=== PATIENT | male | born 1960 | race Caucasian/White ===

== ENCOUNTER 2017-08-28 12:09 | Emergency (ER) | payer OTHER ==
[~2017-08-28] VITALS: Ht 172.7 cm; Wt 92.6 kg
[~2017-08-28 12:09] MED LIST: AMOX500C3 PO; ASCO10003 PO; ASPI81TA28 PO; CALCTAB13 PO; CLC100 PO; DIPH-437 PO; GABA-1218 PO; INSDGI SC; LISI-461 PO; MAGN400T5 PO; MULT-506 PO; MYCO500T4 PO; NVLGI SC; OMEG10007 PO; ONDA4TAB46 PO; PANT40TA PO; TACR1CAP PO; ZNTT/150 PO
[2017-08-28 12:10] VITALS: TEMP 36.4; Ht 172.7 cm; Wt 92.6 kg
[2017-08-28] MEDS ORDERED: INSDGI SC ×2 (12:27→12:28)
[2017-08-28] MEDS ORDERED: NVLG SQ (12:27)
[2017-08-28] MEDS ORDERED: DOCU100C31 PO (12:27)
[2017-08-28] MEDS ORDERED: CALC-354 PO (12:27)
[2017-08-28] MEDS ORDERED: ONDANSETRON INJ 2 MG/ML 2 ML VIAL IV STA ×2 (12:33→14:22)
[2017-08-28] MEDS ORDERED: MoRPHine SULFATE 4 MG/ML 1 ML CARP\\VIAL IV STA ×2 (12:33→14:22)
--- NOTE | 2017-08-28 12:35 | EMERGENCY ROOM VISIT NOTE ---
History Report prepared by Miguel: Allyson Barrett Under the Supervision of: Dr. Refugio Guillen M.D. First contact with patient: 12:15 Chief Complaint: ILLNESS Stated Complaint: ILLNESS History of Present Illness The patient is a 57 year old white male with a past medical history of Diabetes , heart disease, hypertension, heat transplant, [place] who presents to the ED with a cc of persistent vomiting beginning around 0400 this morning. Positive nausea , diarrhea, abdominal pain. The patient states that after he had his heart transplant he would become sick with similar symptoms. He denies any change in medication. The patient states that he has not taken his medications today due to his persistent vomiting. He denies any recent antibiotic use. The patient denies any recent camping, or drinking from streams or wells. He states that he follows with Dr. Jones of Cardiology in [place]. Source of History: patient Onset: 0400 this morning Position: other (global) Quality: other (vomitinger) Timing: other (persistent) Associated Symptoms: + nausea, + abdominal pain, + diarrhea Review of Systems See HPI for pertinent positives and negatives. A total of ten systems were reviewed and were otherwise negative. Past Medical & Surgical Medical Problems: (1) ACUTE MYOCARD INFARCT,UNSPEC SITE,INITIAL EPISODE (2) CORONARY ATHEROSCLEROSIS OF [place] CORONARY VESSEL (3) Diabetes (4) HEART TRANSPLANT STATUS (5) Hypertension Family History Diabetes mellitus Heart disease Hypertension Social History Smoking Status: Never Smoker Smokeless Tobacco Use: No Alcohol Use: occasionally Marital Status: Housing Status: lives with family Occupation Status: employed Current/Historical Medications Scheduled Amoxicillin (Amoxil), 2,000 MG PO UD Ascorbic Acid (Vitamin C), 1,000 MG PO DAILY Aspirin (Aspirin Ec), 81 MG PO Q2D Calcium Carbonate-Cholecalcife (Caltrate 600+D), 1 TAB PO BID Fish Oil ([place]-3), 1 CAP PO TID Gabapentin (Neurontin), 300 MG PO TID Insulin Aspart (Novolog), UNITS SQ ACHS Insulin Glargine (Lantus), 0 SC AMPM Insulin Glargine (Lantus), 12 UNIT SC QPM Magnesium Oxide (Mag-Ox), 400 MG PO DAILY Multivitamin (Multivitamin), 1 TAB PO DAILY Mycophenolate Mofetil (Cellcept), 1,000 MG PO BID Ondasetron Odt (Zofran Odt), 4 MG SL Q6H Pantoprazole (Protonix), 40 MG PO DAILY Pot Phosphate Monobasic W/ Sod (Phospho-Priscilla 250 Neutral 155-852-130 mg), 3 TAB PO BID Tacrolimus (Prograf), 4 MG PO QAM Tacrolimus (Prograf), 3.5 MG PO QPM Scheduled PRN Acetaminophen/Diphenhydramine (Tylenol Pm), 2 TAB PO HS PRN for Sleep Docusate Sodium (Docusate Sodium), 100 MG PO DAILY PRN for Constipation Ondansetron Hcl (Zofran), 4 MG PO Q6 PRN for Nausea Oxycodone Immediate Rel Tab (Roxicodone Ir), 5 MG PO Q6H PRN for Pain Allergies Coded Allergies: Colchicine (Verified Adverse Reaction, Unknown, unknown, 08/28/17) Statins (Verified Adverse Reaction, Unknown, joint pain, 08/28/17) Physical Exam Vital Signs Date Time Temp Pulse Resp B/P (MAP) Pulse Ox O2 Delivery O2 Flow Rate FiO2 08/28/17 16:20 100 134/82 92 08/28/17 14:38 98 16 116/85 96 Room Air 08/28/17 13:53 99 15 129/76 92 Room Air 08/28/17 12:18 99 08/28/17 12:10 36.4 95 19 155/91 97 Room Air Physical Exam GENERAL: Awake, alert, uncomfortable-appearing, NAD HENT: Normocephalic, atraumatic. EYES: Normal conjunctiva. Sclera non-icteric. NECK: Supple. No nuchal rigidity. FROM. CHEST: Surgical scars over the chest. RESPIRATORY: CTAB, no rhonchi, wheezing, crackles CARDIAC: RRR, no MRG ABDOMEN: BS+, scars to the abdomen, diffusely tender, but soft to palpation. MSK: No chest wall TTP, no LE edema NEURO: GCS 15, CN 2-12 intact, moves all 4s on command SKIN: No rash or jaundice noted. Medical Decision & Procedures ER Provider Diagnostic Interpretation: X-ray: Per my interpretation, radiologist review. CHEST ONE VIEW PORTABLE HISTORY: Generalized abdominal pain. COMPARISON: Chest 04/24/2012. FINDINGS: No pneumothorax. The heart is top normal in size. There are poststernotomy changes. The right lung is clear. Stable blunting of the left lateral costophrenic sulcus and a few linear densities at the left lung base. IMPRESSION: Stable chronic changes at the left lung base. No acute process within the chest. Electronically signed by: Ignacio Paulino M.D. 08/28/2017 1:25 PM Dictated Date/Time: 08/28/2017 1:24 PM Laboratory Results 08/28/17 12:25 Red Blood Count 5.75, Mean Corpuscular Volume 85.6, Mean Corpuscular Hemoglobin 31.1, Mean Corpuscular Hemoglobin Concent 36.4, Mean Platelet Volume 10.1, Neutrophils (%) (Auto) 90.5, Lymphocytes (%) (Auto) 2.9, Monocytes (%) (Auto) 5.8, Eosinophils (%) (Auto) 0.3, Basophils (%) (Auto) 0.1, Neutrophils # (Auto) 12.38, Lymphocytes # (Auto) 0.40, Monocytes # (Auto) 0.79, Eosinophils # (Auto) 0.04, Basophils # (Auto) 0.02 08/28/17 12:25 Test 08/28/17 12:25 08/28/17 12:47 08/28/17 13:06 White Blood Count 13.68 K/uL (4.8-10.8) Red Blood Count 5.75 M/uL (4.7-6.1) Hemoglobin 17.9 g/dL (14.0-18.0) Hematocrit 49.2 % (42-52) Mean Corpuscular Volume 85.6 fL (80-100) Mean Corpuscular Hemoglobin 31.1 pg (25-34) Mean Corpuscular Hemoglobin Concent 36.4 g/dl (32-36) Platelet Count 148 K/uL (130-400) Mean Platelet Volume 10.1 fL (7.4-10.4) Neutrophils (%) (Auto) 90.5 % Lymphocytes (%) (Auto) 2.9 % Monocytes (%) (Auto) 5.8 % Eosinophils (%) (Auto) 0.3 % Basophils (%) (Auto) 0.1 % Neutrophils # (Auto) 12.38 K/uL (1.4-6.5) Lymphocytes # (Auto) 0.40 K/uL (1.2-3.4) Monocytes # (Auto) 0.79 K/uL (0.11-0.59) Eosinophils # (Auto) 0.04 K/uL (0-0.5) Basophils # (Auto) 0.02 K/uL (0-0.2) RDW Standard Deviation 38.9 fL (36.4-46.3) RDW Coefficient of Variation 12.5 % (11.5-14.5) Immature Granulocyte % (Auto) 0.4 % Immature Granulocyte # (Auto) 0.05 K/uL (0.00-0.02) Anion Gap 10.0 mmol/L (3-11) Est Creatinine Clear Calc Drug Dose 84.1 ml/min Estimated GFR () 88.8 Estimated GFR (Non- 76.7 BUN/Creatinine Ratio 23.0 (10-20) Calcium Level 9.2 mg/dl (8.5-10.1) Phosphorus Level 1.3 mg/dl (2.5-4.9) Magnesium Level 1.5 mg/dl (1.8-2.4) Total Bilirubin 0.9 mg/dl (0.2-1) Direct Bilirubin 0.2 mg/dl (0-0.2) Aspartate Amino Transf (AST/SGOT) 17 U/L (15-37) Alanine Aminotransferase (ALT/SGPT) 36 U/L (12-78) Alkaline Phosphatase 74 U/L (45-117) Troponin I < 0.015 ng/ml (0-0.045) Total Protein 8.3 gm/dl (6.4-8.2) Albumin 4.3 gm/dl (3.4-5.0) Lipase 652 U/L (73-393) Influenza Type A Antigen Neg for Influ A (NEG) Influenza Type B Antigen Neg for Influ B (NEG) Venous Blood pH 7.45 (7.36-7.41) Venous Blood Partial Pressure CO2 34 mmHg (38.0-50.0) Venous Blood Partial Pressure O2 59 mmHg Venous Blood HCO3 23 mmol/L Venous Blood Oxygen Saturation 91.5 % Venous Blood Base Excess -0.5 mEq/L Lactic Acid Level 2.0 mmol/L (0.4-2.0) Laboratory results reviewed by me Medications Administered Medications (Trade) Dose Ordered Sig/Héctor Route Start Time Stop Time Status Last Admin Dose Admin Ondansetron HCl (Zofran Inj) 4 mg NOW STAT IV 08/28/17 12:33 08/28/17 12:36 DC 08/28/17 12:45 4 MG Morphine Sulfate (MoRPHine SULFATE INJ) 4 mg NOW STAT IV 08/28/17 12:33 08/28/17 12:36 DC 08/28/17 12:45 4 MG Potassium/ Phosphorus/Sodium (Phospha 250 Neutral 155-852-130 Mg) 2 tab ONE STAT PO 08/28/17 14:11 08/28/17 14:12 DC 08/28/17 14:40 2 TAB Ondansetron HCl (Zofran Inj) 4 mg NOW STAT IV 08/28/17 14:22 08/28/17 14:25 DC 08/28/17 14:40 4 MG Potassium/ Phosphorus/Sodium (Phospha 250 Neutral 155-852-130 Mg) 1 tab ONE STAT PO 08/28/17 14:22 08/28/17 14:25 DC 08/28/17 14:41 1 TAB Morphine Sulfate (MoRPHine SULFATE INJ) 4 mg NOW STAT IV 08/28/17 14:22 08/28/17 14:25 DC 08/28/17 14:40 4 MG Famotidine (Pepcid Tab) 20 mg NOW ONCE PO 08/28/17 14:30 08/28/17 14:31 DC 08/28/17 14:41 20 MG Magnesium Oxide (Mag-Ox Tab) 800 mg ONE STAT PO 08/28/17 15:42 08/28/17 15:43 DC 08/28/17 16:04 800 MG Lidocaine HCl (Viscous Lidocaine 2% Soln) 20 ml STK-MED ONCE .ROUTE 08/28/17 14:45 08/28/17 14:46 DC 08/28/17 14:47 20 ML Al Hydroxide/Mg Hydroxide (Maalox Susp) 30 ml STK-MED ONCE .ROUTE 08/28/17 14:45 08/28/17 14:46 DC 08/28/17 14:47 30 ML ECG Indication: vomiting Rate (beats per minute): 100 Rhythm: sinus tachycardia (borderline) Findings: T-wave inversion (Anterior), left axis deviation, other (normal intervals, no other STS changes or TWI) Comparison ECG Date: 04/24/12 Change: no significant change ED Course 1228: The patient was evaluated in room C8. A complete history and physical exam was performed. 1435: I discussed the patients case with Dr. Shah, Cardiology. He recommends that the patient follows up with his transplant team. Medical Decision Differential diagnosis: Etiologies such as gastroenteritis, food borne illness, infections, appendicitis , diverticulitis, inflammatory bowel disease, obstruction, GI bleed, biliary pathology, as well as others were entertained. The patient is a 57 year old white male with a past medical history of Diabetes , heart disease, hypertension, heat transplant, [place] who presents to the ED with a cc of persistent vomiting beginning around 0400 this morning. Patient was seen and evaluated at the bedside. Patient was complaining of some epigastric discomfort along with some nausea vomiting and diarrhea. Patient did have mild discomfort over his abdomen was soft on exam. Patient is afebrile. Patient did have blood work, EKG, troponin, chest x-ray completed along with symptomatic control. Patient had a negative chest x-ray. Patient did have mild white count 13,000. Patient did have a VBG and lactate which were fairly unremarkable. Patient had a lactate of 2 a fairly normal gas. Patient bicarbonate 19. Patient patient lipase was slightly elevated however the patient was given anti-medics and pain medication which improved his symptoms. He very well may have an element of gastroenteritis. I did speak with the on-call boat master given his prior history of heart transplant. The patient had an unchanged EKG and negative troponin. This is unlikely to be ACS. Patient has a normal anion gap even with an elevated glucose but I do not believe he is in DKA. Patient was again able tolerate by mouth symptoms improved. Patient was given return precautions and told to talk to his transplant team tomorrow. Patient agreeable to this plan of care. Patient was given strict follow-up, discharge, and return precautions. All questions were answered. Patient was deemed suitable for outpatient follow-up at this time. Patient agreed with the plan of care and was safely discharged home. Medication Reconcilliation Current Medication List: was personally reviewed by me Consults Time Called: 1434 Consulting Physician: Dr. Shah, Cardiology Returned Call: 1435 I discussed the patients case with Dr. Shah, Cardiology. He recommends that the patient follows up with his transplant team. Impression Primary Impression: Hypomagnesemia Additional Impressions: Hypophosphatemia Epigastric discomfort Hyperglycemia Scribe Attestation The scribe's documentation has been prepared under my direction and personally reviewed by me in its entirety. I confirm that the note above accurately reflects all work, treatment, procedures, and medical decision making performed by me. Departure Information Dispostion Home / Self-Care Prescriptions Pot Phosphate Monobasic W/ Sod (Phospho-Priscilla 250 Neutral 155-852-130 mg) 1 Tab Tab 3 TAB PO BID for 1 Day, #6 TAB Prov: Refugio Guillen M.D. 08/28/17 Ondasetron Odt (ZOFRAN ODT) 4 Mg Tab 4 MG SL Q6H for Nausea, #6 TAB Prov: Refugio Guillen M.D. 08/28/17 Oxycodone Immediate Rel Tab (ROXICODONE IR) 5 Mg Tab 5 MG PO Q6H Y for Pain, #12 TAB Prov: Refugio Guillen M.D. 08/28/17 Referrals Chirag Murphy M.D. (PCP) Patient Instructions Abdominal Pain, ED Nausea Vomiting, Hypomagnesemia Dc, Hypophosphatemia Dc, My [facility] Additional Instructions Please return to the emergency department if you have worsening or recurrent symptoms not amenable to at-home treatment. Please call for a follow-up appointment with her primary care physician. Please take your medications as prescribed. If you have other concerns and/or complaints please feel free to also call your primary care physician's office or return the ED for further evaluation, management, and treatment. You were found to have an elevated blood pressure today (>120 sytolic or >90 diastolic). Per medicare guidelines, you need to follow up with this blood pressure screening with your Primary Care Physician (PCP). For a new PCP call [phone]. You received narcotic or benzodiazepene medication while in the emergency room today. This is an addictive medication that may cause drowziness as well as constipation. Do not drive, operate heavy machinery, or drink alcohol under the influence of this medication. Please call your transplant team discuss your recent visit. Take your medications as prescribed. If taking an antibiotic consider taking a probiotic and/or eating yogurt, but at the least, please take with food as it can cause upset stomach. You have been examined and treated today on an emergency basis only. This is not a substitute for, or an effort to provide, complete comprehensive medical care. It is impossible to recognize and treat all injuries or illnesses in a single emergency department visit. It is therefore important that you follow up closely with [facility], your PCP, and/or your specialist(s). Call as soon as possible for an appointment. Thank you for your time and consideration. I look forward to speaking with you again soon. Please don't hesitate to call us if you have any questions. Problem Qualifiers
[2017-08-28 13:12] LABS: HEMATOCRIT 49.2 % (42-52); MEAN CELL VOLUME 85.6 fL (80-100); MEAN CORPUSCULAR HEMOGLOBIN 31.1 pg (25-34); MEAN CORPUSCULAR HGB CONC 36.4 g/dl (32-36); MEAN PLATELET VOLUME 10.1 fL (7.4-10.4); PLATELET COUNT 148 K/uL (130-400); RED BLOOD COUNT 5.75 M/uL (4.7-6.1); WHITE BLOOD COUNT 13.68 K/uL (4.8-10.8)
[2017-08-28 13:24] LABS: VEN BLD GAS O2 SATURATION 91.5 %; VEN BLOOD GAS BASE EXCESS -0.5 mEq/L
--- NOTE | 2017-08-28 13:26 | DIAGNOSTIC IMAGING REPORT ---
CHEST ONE VIEW PORTABLE HISTORY: Generalized abdominal pain. COMPARISON: Chest 04/24/2012. FINDINGS: No pneumothorax. The heart is top normal in size. There are poststernotomy changes. The right lung is clear. Stable blunting of the left lateral costophrenic sulcus and a few linear densities at the left lung base. IMPRESSION: Stable chronic changes at the left lung base. No acute process within the chest. Electronically signed by: Ignacio Paulino M.D. 08/28/2017 1:25 PM Dictated Date/Time: 08/28/2017 1:24 PM
[2017-08-28 13:31] LABS: ALT/SGPT 36 U/L (12-78); AST/SGOT 17 U/L (15-37); BLOOD UREA NITROGEN 25 mg/dl (7-18); CALCIUM 9.2 mg/dl (8.5-10.1); CARBON DIOXIDE 19 mmol/L (21-32); CHLORIDE 104 mmol/L (98-107); CREATININE 1.07 mg/dl (0.60-1.40); GLUCOSE 273 mg/dl (70-99); MAGNESIUM 1.5 mg/dl (1.8-2.4); POTASSIUM 3.7 mmol/L (3.5-5.1); SODIUM 133 mmol/L (136-145)
[2017-08-28 13:41] LABS: BASO % 0.1 %; BASO ABS # 0.02 K/uL (0-0.2); COMPLETE YES; EOS % 0.3 %; IG% 0.4 %; LYMPH % 2.9 %; MONO % 5.8 %; NEUT % 90.5 %
[2017-08-28 13:50] LABS: ALKALINE PHOSPHATASE 74 U/L (45-117); PHOSPHORUS 1.3 mg/dl (2.5-4.9)
[2017-08-28] MEDS ORDERED: POT PHOSPHATE MONOBASIC W/ SOD TAB PO STA ×2 (14:11→14:22)
[2017-08-28] MEDS ORDERED: GI COCKTAIL PO STA (14:22)
[2017-08-28] MEDS ORDERED: FAMOTIDINE 20 MG TAB PO ONE (14:30)
[2017-08-28] MEDS ORDERED: ALUMINUM/MAGNESIUM SUSP 30 ML UDC ONE (14:45)
[2017-08-28] MEDS ORDERED: LIDOCAINE HCL 2% VISC SOLN 20 ML UDC ONE (14:45)
[2017-08-28] MEDS ORDERED: OXYC1TAB3 PO (15:07)
[2017-08-28] MEDS ORDERED: ONDA4TAB10 SL (15:07)
[2017-08-28] MEDS ORDERED: POT1TAB PO (15:19)
[2017-08-28] MEDS ORDERED: MAGNESIUM OXIDE 400 MG TAB PO STA (15:42)
[2017-08-28 16:20] VITALS: BP 134/82; PULSE 100; O2SAT 92
== END 2017-08-28 16:21 | disposition home or self-care (01) ==
LOC: EDBD 12:09 → C.EDC 12:10
DX: E83.42 Hypomagnesemia (principal); E83.39 Other disorders of phosphorus metabolism; R10.13 Epigastric pain; E11.65 Type 2 diabetes mellitus with hyperglycemia; I11.9 Hypertensive heart disease without heart failure; I25.2 Old myocardial infarction; Z94.1 Heart transplant status; Z83.3 Family history of diabetes mellitus; Z82.49 Family history of ischemic heart disease and other diseases of the circulatory system; Z79.4 Long term (current) use of insulin; Z79.899 Other long term (current) drug therapy

== ENCOUNTER 2022-12-11 10:12 | Observation (INO) ==
[2022-12-11] MEDS ORDERED: MoRPHine SULFATE 4 MG/ML 1 ML CARP\\VIAL IV STA ×3 (10:23→17:22)
[2022-12-11] MEDS ORDERED: ONDANSETRON INJ 2 MG/ML 2 ML VIAL IV STA ×3 (10:23→17:22)
[2022-12-11] MEDS: SODIUM CHLORIDE 0.9% 1000ML 1,000 ML IV SCH ×2 (10:28→17:35)
--- NOTE | 2022-12-11 10:44 | Emergency Department Note ---
Impression & Plan Acute left-sided low back pain, Nausea & vomiting, Diarrhea ED Provider Note ED Provider Note NAME: MELISA ROSADO AGE:62 SEX: Male : 1960 ARRIVES VIA: EMS INFORMANT: Patient ED PROVIDER(s): Maria Kuo DO CHIEF COMPLAINT: Nausea, vomiting, back pain HPI: This is a 62-year-old male presents emergency department due to abrupt onset of nausea, vomiting, and left low back pain this morning. No prior similar episodes. He states pain is nonradiating, no change with position or exertion. He states he did vomit several times and he feels that the persistent nausea is now making him short of breath. He denies any additional abdominal pain or chest pain. Patient with significant prior history including prior cardiac transplant. No recent trauma or change in activity. Patient states he has chronically loose stools secondary to his medications. No recent change in urine. Patient states he did have a stress test done 1 month ago at the [facility] which was reported to him was normal. He states he is taking his usual medications as prescribed although could not this morning due to vomiting. Patient states his was ill last week with similar symptoms. 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 PAST MEDICAL HISTORY:See Below PAST SURGICAL HISTORY:See Below FAMILY HISTORY:See Below SOCIAL HISTORY:See Below HOME MEDICATIONS:See Below ALLERGIES:See Below VITALS:See Below PHYSICAL EXAMINATION: GENERAL: alert, well appearing, well nourished, no distress, non-toxic EYE EXAM: normal conjunctiva, PERRL and EOM's grossly intact OROPHARYNX: no exudate, no erythema, lips, buccal mucosa, and tongue normal and mucous membranes are moist NECK: supple, no nuchal rigidity, no adenopathy, non-tender LUNGS: Clear to auscultation. Normal chest wall mechanics, no w/r/r HEART: no murmurs, S1 normal and S2 normal ABDOMEN: abdomen soft, non-tender, normo-active bowel sounds, no masses, no rebound or guarding. BACK: Back is symmetrical on inspection and there is no deformity, no midline tenderness, no CVA tenderness. SKIN: no rashes, petechiae, orbruising UPPER EXTREMITIES: upper extremities are grossly normal. FROM, nml pulses b/l. LOWER EXTREMITIES: No pitting edema. FROM, nml pulses b/l. NEURO EXAM: Normal sensorium, cranial nerves II-XII grossly intact, normal speech, no facial droop,nogross weakness of arms, no gross weakness of legs. Gross sensation intact. No ataxia. Vital Signs: reviewed and remarkable Differential Diagnosis: Renal colic, ureterolithiasis, ascending UTI, musculoskeletal pain, AAA, dissection, viral illness, perforation, GI bleed, bowel obstruction, as well as others were considered MEDICAL DECISION MAKING: This is a 62-year-old male who presents with acute onset of GI symptoms and accompanying low back pain. Patient well-appearing on arrival although hemodynamically stable. He was noted to be mildly tachycardic. Due to concern given transplant history, labs drawn and sent, IV established, additional cultures added, EKG performed and interpreted by me at bedside, chest x-ray performed and interpreted by me at bedside, patient placed on telemetry. Patient sent for CT imaging additionally of the abdomen pelvis which was reassuring. He was hydrated with 2 L of IV fluids and given several rounds of IV morphine and IV Zofran. Patient did have some slow improvement. I was able to eventually make contact with a member of their transplant team at [facility]. We discussed all labs including his leukocytosis and elevated procalcitonin. Given likely viral etiology, they did not feel he required additional empiric antibiotics. Patient had recurrent nausea vomiting and was unable to tolerate p.o. so case was discussed with the on-call hospitalist team. Stool culture still pending at that time. Nasal swab otherwise negative. Gentle IV fluid hydration was continued and additional medications for pain and nausea added. Vital signs stable throughout. Patient has a family history recent viral syndrome. Patient was first seen and observation began at 1030 and was necessary in order to evaluate symptoms and provide multiple doses of IV pain medication, IV nausea medication, and several liters of IV fluids. Upon re-evaluation, 6 hours of observation revealed that the patient should be admitted. Discharge from observation at 1653. Consultation(s): 161: Discussed with GINA Mccann with transplant team at [facility]. Their number is [phone]. No need for empiric antibiotics. Decision point for admit versus close outpatient follow-up would be whether or not the patient can tolerate p.o. If stools can be sent for culture, can follow those up additionally. 165: Discussed with Irma Anguiano hospitalist team ER Treatment Provided: See below Diagnostics Interpreted By Me: -ECG: Sinus tachycardia however I do not believe the EKG recorded ventricular rate of 192 is I think it is counting abnormally, leftward axis, normal QRS and QTc, appearance of incomplete right bundle branch block noted precordially with accompanying T wave inversions. -Cardiac Monitoring: An order was placed for continuous cardiac monitoring. The monitor shows a rate of 110 with sinus tachycardia rhythm. -Laboratory studies: As stated above and show below. -Imaging studies: X-ray Chest: A single view study of the chest was reviewed and was negative for cardiomegaly, focal infiltrate, effusion, pulmonary edema, or wide mediastinum. Triage Nursing Note Reviewed Prior/Outside Records Reviewed - prior EKG's reviewed Procedures: [] Critical Care: [] Past Med/Surg History Medical History History of abdominal hernia Surgical History Hx of heart transplant 03/27/2011 at [facility] Hx of vasectomy Family History Other Diabetes Heart disease Social History Smoking Status: Never smoker Tobacco Type: Cigarettes Second Hand Exposure: No; Hx Alcohol Use: No Hx Substance Use: No Preferred Language: German Communication Ability: Effective Television Announcer Required: No Beliefs That Will Affect Care: None Current Living Situation: Spouse Other Information That Helps Us Care for You: No Feels Safe at Home: Yes Safety Concerns: Feels Safe At This Time Assistive Devices: Glasses Assistive Devices Comment: lower partial Allergies Allergies Allergy/AdvReac Type Severity Reaction Status Date / Time colchicine AdvReac Unknown unknown Verified 03/07/19 11:30 [id number] Reductase AdvReac Unknown joint pain Verified 03/07/19 11:30 Inhibitor [Qcsmprj-[id number]-[id number] Reductase Inhibitor] Home Meds Home Medications Medication Instructions Recorded Confirmed acetaminophen 325 mg tablet 325 mg PO DIRECTED PRN Pain 12/11/22 12/11/22 (Tylenol) albuterol sulfate 90 mcg/actuation 2 puff inhalation QID 12/11/22 12/11/22 aerosol inhaler amlodipine 5 mg tablet 5 mg PO DAILY 12/11/22 12/11/22 ascorbic acid (vitamin C) 1,000 mg 1 g PO DAILY 12/11/22 12/11/22 tablet (Vitamin C) aspirin 81 mg tablet,delayed 81 mg PO Q2D 12/11/22 12/11/22 release calcium carbonate 500 mg-vitamin 1 tab PO BID 12/11/22 12/11/22 D3 10 mcg (400 unit) tablet (Calcium 500 + D) diphenhydramine HCl 25 mg capsule 25 mg PO Q6H PRN Itching 12/11/22 12/11/22 (Benadryl) dulaglutide 3 mg/0.5 mL 3 mg subcut WK 12/11/22 12/11/22 subcutaneous pen injector (Trulicity) ezetimibe 10 mg tablet 10 mg PO DAILY 12/11/22 12/11/22 famotidine 20 mg tablet (Pepcid) 20 mg PO BID 12/11/22 12/11/22 fluorouracil 5 % topical cream 1 applic topical DIRECTED PRN 12/11/22 12/11/22 (Efudex) NEEDED gabapentin 300 mg capsule 300 mg PO TID 12/11/22 12/11/22 ibuprofen 200 mg tablet 200 mg PO Q4H PRN Pain 12/11/22 12/11/22 insulin glargine 100 unit/mL (3 10 unit subcut DAILY 12/11/22 12/11/22 mL) subcutaneous pen (Basaglar KwikPen U-100 Insulin) losartan 100 mg tablet 100 mg PO DAILY 12/11/22 12/11/22 magnesium oxide 400 mg PO DAILY 12/11/22 12/11/22 metformin 500 mg tablet,extended 1,000 mg PO BIDM 12/11/22 12/11/22 release 24 hr multivitamin 1 tab PO DAILY 12/11/22 12/11/22 mycophenolate mofetil 500 mg 500 mg PO BID 12/11/22 12/11/22 tablet (CellCept) omega 7-hah-oig-fish oil 1,000 mg 1 cap PO TID 12/11/22 12/11/22 (120 mg-180 mg) capsule (Fish Oil) ondansetron HCl 4 mg tablet 4 mg PO Q6H PRN Nausea 12/11/22 12/11/22 tacrolimus 1 mg capsule, See Rx Instructions .Route .COMPLEX 12/11/22 12/11/22 immediate-release Results & Data (ED) Vital Signs Vital Signs - 24 hr 12/11/22 17:00 12/11/22 17:00 Pulse Rate 99 H Respiratory Rate 19 Blood Pressure 119/77 Blood Pressure Mean 91 Laboratory Data 12/11/22 10:21 12/11/22 10:21 Lab Results 12/11/22 12/11/22 12/11/22 Range/Units 10:21 10:21 10:21 WBC 16.57 H (4.8-10.8) K/ul RBC 5.52 (4.70-6.10) M/uL Hgb 16.0 (14.0-18.0) g/dl Hct 46.5 (42.0-52.0) % MCV 84.2 (80.0-100.0) fL MCH 29.0 (25.0-34.0) pg MCHC 34.4 (32.0-36.0) g/dL RDW Std Deviation 38.5 (36.4-46.3) fL RDW Coeff of Rajinder 12.6 (11.5-14.5) % Plt Count 214 (130-400) K/uL MPV 9.3 L (9.4-12.4) fL Immature Gran % (Auto) 0.5 % Neut % (Auto) 90.3 % Lymph % (Auto) 3.6 % Hart % (Auto) 5.3 % Eos % (Auto) 0.1 % Baso % (Auto) 0.2 % Neut # (Auto) 14.96 H (1.40-6.50) K/uL Lymph # (Auto) 0.60 L (1.2-3.4) K/uL Hart # (Auto) 0.87 H (0.11-0.59) K/uL Eos # (Auto) 0.02 (0-0.50) K/uL Baso # (Auto) 0.04 (0-0.2) K/uL Immature Gran # (Auto) 0.08 (0.01-0.20) K/uL Sodium 139 (136-145) mmol/L Potassium 4.3 (3.5-5.1) mmol/L Chloride 100 (98-107) mmol/L Carbon Dioxide 24 (21-32) mmol/L Anion Gap 15 H (3-11) BUN 29 H (6-23) mg/dl Creatinine 1.28 (0.6-1.4) mg/dl Est Cr Clr Drug Dosing 57.9 ml/min Est GFR ( Amer) 69.1 ml/min Est GFR (Non-Af Amer) 59.6 ml/min BUN/Creatinine Ratio 22.7 H (10-20) Glucose 243 H (70-99(Fasting)) mg/dl Lactate (0.4-2.0) mmol/L Calcium 10.0 (8.6-10.3) mg/dl Total Bilirubin 1.1 H (0.2-1.0) mg/dl AST 23 (13-39) U/L ALT 24 (7-52) U/L Alkaline Phosphatase 65 (34-104) U/L Total Protein 8.5 H (6.0-8.3) gm/dl Albumin 5.0 (3.4-5.0) gm/dl Globulin 3.5 (2.5-4.0) gm/dl Albumin/Globulin Ratio 1.4 (0.9-2) Lipase 62 (11-82) U/L Procalcitonin 0.71 H (0-0.5) ng/ml Urine Color Urine Appearance (Clear) Urine pH (4.5-7.5) Ur Specific [place] (1.000-1.030) Urine Protein (Negative) Urine Glucose (UA) (Negative) Urine Ketones (Negative) Urine Blood (Negative) Urine Nitrite (Negative) Urine Bilirubin (Negative) Urine Urobilinogen (Negative) Ur Leukocyte Esterase (Negative) Urine WBC (Auto) (0-5) /hpf Urine RBC (Auto) (0-4) /hpf U Hyaline Cast (Auto) (0-5) /lpf U Epithel Cells (Auto) (0-5) /lpf Urine Bacteria (Auto) (Negative) Adenovirus (PCR) (NotDetected) B. pertussis DNA (PCR) (NotDetected) B.parapertussis DNA PCR (NotDetected) C. pneumoniae DNA (PCR) (NotDetected) Coronavirus OC43 (PCR) (NotDetected) Coronavirus HKU1 (PCR) (NotDetected) Coronavirus 229E (PCR) (NotDetected) SARS-CoV-2 (PCR) (NotDetected) Coronavirus NL63 (PCR) (NotDetected) Human Metapneumovir PCR (NotDetected) Influenza Type A (PCR) (NotDetected) Influenza Type B (PCR) (NotDetected) M. pneumoniae (PCR) (NotDetected) Parainfluenza 1 (PCR) (NotDetected) Parainfluenza 2 (PCR) (NotDetected) Parainfluenza 3 (PCR) (NotDetected) Parainfluenza 4 (PCR) (NotDetected) RSV (PCR) (NotDetected) Entero/Rhino (PCR) (NotDetected) 12/11/22 12/11/22 12/11/22 Range/Units 11:17 12:17 13:13 WBC (4.8-10.8) K/ul RBC (4.70-6.10) M/uL Hgb (14.0-18.0) g/dl Hct (42.0-52.0) % MCV (80.0-100.0) fL MCH (25.0-34.0) pg MCHC (32.0-36.0) g/dL RDW Std Deviation (36.4-46.3) fL RDW Coeff of Rajinder (11.5-14.5) % Plt Count (130-400) K/uL MPV (9.4-12.4) fL Immature Gran % (Auto) % Neut % (Auto) % Lymph % (Auto) % Hart % (Auto) % Eos % (Auto) % Baso % (Auto) % Neut # (Auto) (1.40-6.50) K/uL Lymph # (Auto) (1.2-3.4) K/uL Hart # (Auto) (0.11-0.59) K/uL Eos # (Auto) (0-0.50) K/uL Baso # (Auto) (0-0.2) K/uL Immature Gran # (Auto) (0.01-0.20) K/uL Sodium (136-145) mmol/L Potassium (3.5-5.1) mmol/L Chloride (98-107) mmol/L Carbon Dioxide (21-32) mmol/L Anion Gap (3-11) BUN (6-23) mg/dl Creatinine (0.6-1.4) mg/dl Est Cr Clr Drug Dosing ml/min Est GFR ( Amer) ml/min Est GFR (Non-Af Amer) ml/min BUN/Creatinine Ratio (10-20) Glucose (70-99(Fasting)) mg/dl Lactate 1.4 (0.4-2.0) mmol/L Calcium (8.6-10.3) mg/dl Total Bilirubin (0.2-1.0) mg/dl AST (13-39) U/L ALT (7-52) U/L Alkaline Phosphatase (34-104) U/L Total Protein (6.0-8.3) gm/dl Albumin (3.4-5.0) gm/dl Globulin (2.5-4.0) gm/dl Albumin/Globulin Ratio (0.9-2) Lipase (11-82) U/L Procalcitonin (0-0.5) ng/ml Urine Color Yellow Urine Appearance Clear (Clear) Urine pH 8.5 H (4.5-7.5) Ur Specific [place] 1.019 (1.000-1.030) Urine Protein Trace H (Negative) Urine Glucose (UA) Trace H (Negative) Urine Ketones 3+ H (Negative) Urine Blood Negative (Negative) Urine Nitrite Negative (Negative) Urine Bilirubin Negative (Negative) Urine Urobilinogen Negative (Negative) Ur Leukocyte Esterase Negative (Negative) Urine WBC (Auto) 0 (0-5) /hpf Urine RBC (Auto) 0-4 (0-4) /hpf U Hyaline Cast (Auto) 1-5 (0-5) /lpf U Epithel Cells (Auto) 0-5 (0-5) /lpf Urine Bacteria (Auto) Negative (Negative) Adenovirus (PCR) Not Detected (NotDetected) B. pertussis DNA (PCR) Not Detected (NotDetected) B.parapertussis DNA PCR Not Detected (NotDetected) C. pneumoniae DNA (PCR) Not Detected (NotDetected) Coronavirus OC43 (PCR) Not Detected (NotDetected) Coronavirus HKU1 (PCR) Not Detected (NotDetected) Coronavirus 229E (PCR) Not Detected (NotDetected) SARS-CoV-2 (PCR) Not Detected (NotDetected) Coronavirus NL63 (PCR) Not Detected (NotDetected) Human Metapneumovir PCR Not Detected (NotDetected) Influenza Type A (PCR) Not Detected (NotDetected) Influenza Type B (PCR) Not Detected (NotDetected) M. pneumoniae (PCR) Not Detected (NotDetected) Parainfluenza 1 (PCR) Not Detected (NotDetected) Parainfluenza 2 (PCR) Not Detected (NotDetected) Parainfluenza 3 (PCR) Not Detected (NotDetected) Parainfluenza 4 (PCR) Not Detected (NotDetected) RSV (PCR) Not Detected (NotDetected) Entero/Rhino (PCR) Not Detected (NotDetected) Administered Medications Amlodipine Besylate (Amlodipine Besylate 5 Mg Tab) 5 mg PO DAILY [facility] Stop: 01/11/23 08:59 Last Admin: 12/12/22 08:25 Dose: 5 mg Documented By: AMBER Aspirin (Aspirin 81 Mg Ectab) 81 mg PO Q2D@0900 [facility] Stop: 01/10/23 19:05 Last Admin: 12/12/22 08:25 Dose: 81 mg Documented By: Admin: 12/11/22 19:56 Dose: 81 mg Documented By: ROMÁN Gabapentin (Gabapentin 300 Mg Cap) 300 mg PO TID [facility] Stop: 01/10/23 20:59 Last Admin: 12/12/22 13:22 Dose: 300 mg Documented By: Admin: 12/12/22 08:25 Dose: 300 mg Documented By: Admin: 12/11/22 20:44 Dose: 300 mg Documented By: ROMÁN Sodium Chloride (Nss 1000ml) 1,000 mls @ 75 mls/hr IV .[id number] LOIS Stop: 01/10/23 10:29 Last Infusion: 12/12/22 09:04 Dose: 75 mls/hr Documented By: [id number] Admin: 12/12/22 08:26 Dose: 125 mls/hr Documented By: Infusion: 12/12/22 08:26 Dose: 125 mls/hr Documented By: Admin: 12/12/22 01:55 Dose: 125 mls/hr Documented By: Infusion: 12/12/22 01:35 Dose: 125 mls/hr Documented By: Admin: 12/11/22 17:35 Dose: 125 mls/hr Documented By: Infusion: 12/11/22 17:35 Dose: 125 mls/hr Documented By: Admin: 12/11/22 10:28 Dose: 125 mls/hr Documented By: SILVERIO Prochlorperazine 5 mg/ Syringe 5 mls @ 5 mls/min IV Q6H PRN PRN Reason: Nausea And Vomiting Stop: 01/10/23 19:05 Last Admin: 12/12/22 05:30 Dose: 5 mls/min Documented By: JACKELIN Insulin Aspart (Insulin Aspart Per Unit Charge) 0 units SC ACHS [facility] Stop: 01/10/23 20:59 Last Admin: 12/12/22 12:13 Dose: Not Given Documented By: Admin: 12/12/22 08:24 Dose: 4 units Documented By: AMBER Co-signed By: [id number] Admin: 12/11/22 20:39 Dose: Not Given Documented By: ROMÁN Co-signed By: ASW Morphine Sulfate (Morphine Sulfate 4 Mg/Ml 1 Ml Carp\Vial) 4 mg IV Q4H PRN PRN Reason: Pain, severe rating 8,9,10 Stop: 12/25/22 19:05 Last Admin: 12/12/22 05:51 Dose: 4 mg Documented By: JACKELIN Mycophenolate Mofetil (Mycophenolate Mofetil 250 Mg Cap) 500 mg PO BID [facility] Stop: 01/10/23 20:59 Last Admin: 12/12/22 08:24 Dose: 500 mg Documented By: Admin: 12/11/22 20:44 Dose: 500 mg Documented By: ROMÁN Ondansetron HCl (Ondansetron Inj 2 Mg/Ml 2 Ml Vial) 4 mg IV Q4H PRN PRN Reason: Nausea And Vomiting Stop: 01/10/23 19:05 Last Admin: 12/12/22 04:07 Dose: 4 mg Documented By: JACKELIN Tacrolimus (Tacrolimus 1 Mg Cap) 3 mg PO QAM [facility] Stop: 01/11/23 08:59 Last Admin: 12/11/22 20:43 Dose: 2 mg Documented By: ROMÁN Tacrolimus (Tacrolimus 0.5 Mg Cap) 2.5 mg PO QPM LOIS Stop: 01/10/23 20:59 Last Admin: 12/11/22 20:44 Dose: Not Given Documented By: ROMÁN Discontinued Medications Al Hydrox/Mg Hydrox/Simethicone (Aluminum/Magnesium Susp 30 Ml Udc) 15 ml PO NOW STA Stop: 12/11/22 16:12 Last Admin: 12/11/22 17:09 Dose: 15 ml Documented By: FREEDOM Albuterol (Albuterol Hfa 8 Gm Inhaler) 2 puffs INH QIDR LOIS Stop: 01/10/23 20:59 Last Admin: 12/12/22 08:41 Dose: 2 puffs Documented By: Admin: 12/11/22 20:42 Dose: 2 puffs Documented By: ROMÁN Famotidine (Pepcid 20mg Iv Push) 20 mg in 5 mls @ 2.5 mls/min IV NOW STA Stop: 12/11/22 16:12 Last Admin: 12/11/22 16:29 Dose: 2.5 mls/min Documented By: FREEDOM Prochlorperazine (Compazine) 1 mls @ 1 mls/min IV ONE ONE Stop: 12/11/22 16:20 Last Admin: 12/11/22 16:29 Dose: 1 mls/min Documented By: FREEDOM Magnesium Sulfate/Dextrose (Magnesium Sulfate / D5w) 1 gm in 100 mls @ 50 mls/hr IV Q2H [facility] Stop: 12/12/22 13:14 Last Infusion: 12/12/22 14:28 Dose: 0 mls/hr Documented By: Admin: 12/12/22 12:11 Dose: 50 mls/hr Documented By: Infusion: 12/12/22 12:11 Dose: 50 mls/hr Documented By: Admin: 12/12/22 10:23 Dose: 50 mls/hr Documented By: AMBER Potassium Phosphate 15 mmol/ (Sodium Chloride) 255 mls @ 88 mls/hr IV ONE ONE Stop: 12/12/22 12:08 Last Infusion: 12/12/22 13:26 Dose: 0 mls/hr Documented By: Admin: 12/12/22 10:24 Dose: 88 mls/hr Documented By: AMBER Morphine Sulfate (Morphine Sulfate 4 Mg/Ml 1 Ml Carp\Vial) 4 mg IV NOW STA Stop: 12/11/22 10:24 Last Admin: 12/11/22 10:28 Dose: 4 mg Documented By: SILVERIO Morphine Sulfate (Morphine Sulfate 4 Mg/Ml 1 Ml Carp\Vial) 4 mg IV NOW STA Stop: 12/11/22 10:39 Last Admin: 12/11/22 10:42 Dose: 4 mg Documented By: AM Morphine Sulfate (Morphine Sulfate 2 Mg/Ml Carp) 2 mg IV NOW STA Stop: 12/11/22 11:03 Last Admin: 12/11/22 11:09 Dose: 2 mg Documented By: AM Morphine Sulfate (Morphine Sulfate 4 Mg/Ml 1 Ml Carp\Vial) 4 mg IV NOW STA Stop: 12/11/22 17:23 Last Admin: 12/11/22 17:35 Dose: 4 mg Documented By: HS Ondansetron HCl (Ondansetron Inj 2 Mg/Ml 2 Ml Vial) 4 mg IV NOW STA Stop: 12/11/22 10:24 Last Admin: 12/11/22 10:28 Dose: 4 mg Documented By: SILVERIO Ondansetron HCl (Ondansetron Inj 2 Mg/Ml 2 Ml Vial) 4 mg IV NOW STA Stop: 12/11/22 11:03 Last Admin: 12/11/22 11:07 Dose: 4 mg Documented By: AM Ondansetron HCl (Ondansetron Inj 2 Mg/Ml 2 Ml Vial) 4 mg IV NOW STA Stop: 12/11/22 17:23 Last Admin: 12/11/22 17:35 Dose: 4 mg Documented By: FREEDOM Imaging Data Radiologist's Impression: Abdomen/Pelvis CT 12/11/22 10:23 CT OF THE ABDOMEN AND PELVIS WITHOUT CONTRAST CLINICAL HISTORY: Left low back/flank pain. COMPARISON STUDY: No previous studies for comparison. TECHNIQUE: Axial images of the abdomen and pelvis were obtained without IV contrast. Images were reviewed in the axial, sagittal, and coronal planes. Auto mated exposure control was utilized for the study. A dose lowering technique was utilized adhering to the principles of ALARA. FINDINGS: Lung bases are unremarkable. No pneumatosis, free air or portal venous gas is present. No renal, ureteral or bladder calculi are present. An 8 mm lesion within the left kidney on axial image 189 of 476 is suboptimally assessed on this unenhanced exam. A 3.5 cm water attenuation density within the right renal sinus represents a parapelvic cyst. There may be mild mild dilatation of the upper pole calyces of the right kidney. There are gallstones within the gallbladder. No evidence for acute cholecystitis. Evaluation of the abdomen and pelvis is suboptimal on this unenhanced exam. Liver, spleen, adrenal glands and pancreas are unremarkable. The colon is mildly fluid-filled. There is apparent wall thickening of the proximal transverse colon, shown best on axial image 199 of 476. This is likely due to underdistention. Colonic diverticulosis is present. No evidence for acute diverticulitis. No lymphadenopathy. No fluid collection. There is mild symmetric bilateral perinephric and periureteral adrenal stranding. Appendix is normal. IMPRESSION: 1. No urinary calculi. 2. Mild collecting system dilatation versus parapelvic cysts within the upper pole of the right kidney. 3. Fluid-filled colon. This may reflect a diarrheal state. Apparent wall thickening of the proximal transverse colon. This is likely due to underdistention. However, if not recently performed, a colonoscopy is recommended to exclude the less likely possibility of an underlying lesion. 4. Cholelithiasis. No evidence for acute cholecystitis. ACT 112: Positive. There are findings on this exam that require communication between the performing entity and the patient following Patient Test Result Information Act ([place] Act 112) guidelines. Electronically signed by: Abiodun Dennis M.D. 12/11/2022 12:11 PM Chest X-Ray 12/11/22 10:39 SINGLE VIEW CHEST CLINICAL HISTORY: Dyspnea FINDINGS: An AP, portable, upright chest radiograph is compared to study dated 08/28/2017. Correlation is made with chest CT dated 04/07/2010. The patient is status post midline sternotomy. The heart is enlarged. The pulmonary vasculature is noncongested. Chronic interstitial thickening is similar to previous. Scarring/atelectasis is noted at both lung bases. No airspace consolidation or large pleural effusion is identified. No pneumothorax is seen. The skeletal structures appear osteopenic. The bony thorax is grossly intact. Arthritic change is seen in the shoulders. IMPRESSION: Cardiomegaly with no acute cardiopulmonary abnormality. ACT 112: Negative or not required by law. Electronically signed by: Destin Limon M.D. 12/11/2022 11:11 AM Discharge Plan Visit Data Chief Complaint: Illness ED Provider: Maria Kuo Discharge Problem: Acute left-sided low back pain, Nausea & vomiting, Diarrhea Patient Disposition: Admitted As Inpatient Discharge Instructions Interventions: ED Discharge Assessment Last Done: 12/11/22 19:12
[2022-12-11 11:02] LABS: Hematocrit (blood only) 46.5 % (42.0-52.0); Mean Corpuscular Hgb Conc 34.4 g/dL (32.0-36.0); Mean Corpuscular Volume 84.2 fL (80.0-100.0); Mean Platelet Volume 9.3 fL (9.4-12.4); Platelet Count 214 K/uL (130-400); RDW Coefficient of Variation 12.6 % (11.5-14.5); RDW Standard Deviation 38.5 fL (36.4-46.3); Red Blood Count 5.52 M/uL (4.70-6.10); White Blood Count 16.57 K/ul (4.8-10.8)
[2022-12-11] MEDS ORDERED: MoRPHine SULFATE 2 MG/ML CARP IV STA (11:02)
--- NOTE | 2022-12-11 11:12 | XRay Report ---
SINGLE VIEW CHEST CLINICAL HISTORY: Dyspnea FINDINGS: An AP, portable, upright chest radiograph is compared to study dated 08/28/2017. Correlatio n is made with chest CT dated 04/07/2010. The patient is status post midline sternotomy. The heart is enlarged. The pulmonary vasculature is noncongested. Chronic interstitial thickening is similar to pr evious. Scarring/atelectasis is noted at both lung bases. No airspace consolidation or large pleural effusion is identified. No pneumothorax is seen. The skeletal structures appear osteopenic. The bony thorax is grossly intact. Arthritic change is seen in the shoulders. IMPRESSION: Cardiomegaly with no acute cardiopulmonary abnormality. ACT 112: Negative or not required by law. Electronically signed by: Destin Limon M.D. 12/11/2022 11:11 AM
[2022-12-11 11:18] LABS: Albumin Globulin Ratio 1.4 (0.9-2); BUN Creatinine Ratio 22.7 (10-20); Bilirubin,Total 1.1 mg/dl (0.2-1.0); Creatinine Clr Calc Pharmacy 57.9 ml/min; Est GFR (African American) 69.1 ml/min; Est GFR (Non-African American) 59.6 ml/min; Globulin 3.5 gm/dl (2.5-4.0); Potassium 4.3 mmol/L (3.5-5.1); Total Protein 8.5 gm/dl (6.0-8.3)
[2022-12-11 11:26] LABS: Basophils # (auto) 0.04 K/uL (0-0.2); Basophils % (auto) 0.2 %; Eosinophils # (auto) 0.02 K/uL (0-0.50); Eosinophils % (auto) 0.1 %; Immature Granulocytes # (auto) 0.08 K/uL (0.01-0.20); Immature Granulocytes % (auto) 0.5 %; Lymphocytes % (auto) 3.6 %; Monocytes # (auto) 0.87 K/uL (0.11-0.59); Monocytes % (auto) 5.3 %; Neutrophils # (auto) 14.96 K/uL (1.40-6.50); Neutrophils % (auto) 90.3 %
--- NOTE | 2022-12-11 12:13 | CT Scan Report ---
CT OF THE ABDOMEN AND PELVIS WITHOUT CONTRAST CLINICAL HISTORY: Left low back/flank pain. COMPARISON STUDY: No previous studies for comparison. TECHNIQUE: Axial images of the abdomen and pelvis were obtained without IV contrast. Images were revi ewed in the axial, sagittal, and coronal planes. Automated exposure control was utilized for the renee dy. A dose lowering technique was utilized adhering to the principles of ALARA. FINDINGS: Lung bases are unremarkable. No pneumatosis, free air or portal venous gas is present. No r enal, ureteral or bladder calculi are present. An 8 mm lesion within the left kidney on axial image 1 89 of 476 is suboptimally assessed on this unenhanced exam. A 3.5 cm water attenuation density within the right renal sinus represents a parapelvic cyst. There may be mild mild dilatation of the upper p ole calyces of the right kidney. There are gallstones within the gallbladder. No evidence for acute c holecystitis. Evaluation of the abdomen and pelvis is suboptimal on this unenhanced exam. Liver, sple en, adrenal glands and pancreas are unremarkable. The colon is mildly fluid-filled. There is apparent wall thickening of the proximal transverse colon, shown best on axial image 199 of 476. This is like ly due to underdistention. Colonic diverticulosis is present. No evidence for acute diverticulitis. N o lymphadenopathy. No fluid collection. There is mild symmetric bilateral perinephric and periuretera l adrenal stranding. Appendix is normal. IMPRESSION: 1. No urinary calculi. 2. Mild collecting system dilatation versus parapelvic cysts within the upper pole of the right kidne y. 3. Fluid-filled colon. This may reflect a diarrheal state. Apparent wall thickening of the proximal t ransverse colon. This is likely due to underdistention. However, if not recently performed, a colonos copy is recommended to exclude the less likely possibility of an underlying lesion. 4. Cholelithiasis. No evidence for acute cholecystitis. ACT 112: Positive. There are findings on this exam that require communication between the performing entity and the patient following Patient Test Result Information Act ([place] Act 112) guidelines. Electronically signed by: Abiodun Dennis M.D. 12/11/2022 12:11 PM
--- NOTE | 2022-12-11 12:16 | Electrocardiogram Report ---
Test Reason : Blood Pressure : / mmHG Vent. 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
[2022-12-11 13:31] LABS: Appearance Urine Clear (Clear); Bacteria Urine Automated Negative (Negative); Bilirubin Urine Negative (Negative); Blood Urine Negative (Negative); Color Urine Yellow; Epithelial Cell Urine Auto 0-5 /lpf (0-5); Glucose Urine UA Trace (Negative); Ketones Urine 3+ (Negative); Leukocyte Esterase Urine Negative (Negative); Nitrite Urine Negative (Negative); RBC Urine Automated 0-4 /hpf (0-4); Specific Gravity Urine 1.019 (1.000-1.030); Urobilinogen Urine Negative (Negative); WBC Urine Automated 0 /hpf (0-5); pH Urine 8.5 (4.5-7.5)
[2022-12-11 13:48] LABS: Protein Urine Trace (Negative)
[2022-12-11 14:32] LABS: Adenovirus PCR Not Detected (NotDetected); Bordetella parapertussis PCR Not Detected (NotDetected); Bordetella pertussis PCR Not Detected (NotDetected); Chlamydia pneumoniae PCR Not Detected (NotDetected); Coronavirus 229E PCR Not Detected (NotDetected); Coronavirus CoV-2 (COVID19)PCR Not Detected (NotDetected); Coronavirus HKU1 PCR Not Detected (NotDetected); Coronavirus NL63 PCR Not Detected (NotDetected); Coronavirus OC43PCR Not Detected (NotDetected); Human Metapneumovirus PCR Not Detected (NotDetected); Influenza A PCR Not Detected (NotDetected); Influenza B PCR Not Detected (NotDetected); Mycoplasma pneumoniae PCR Not Detected (NotDetected); Parainfluenza Virus 1 PCR Not Detected (NotDetected); Parainfluenza Virus 2 PCR Not Detected (NotDetected); Parainfluenza Virus 3 PCR Not Detected (NotDetected); Parainfluenza Virus 4 PCR Not Detected (NotDetected); Respiratory Syncytial VirusPCR Not Detected (NotDetected); Rhinovirus/Enterovirus PCR Not Detected (NotDetected)
[2022-12-11] MEDS ORDERED: ALUMINUM/MAGNESIUM SUSP 30 ML UDC PO STA (16:11)
[2022-12-11] MEDS ORDERED: FAMOTIDINE 20MG IV PUSH 20 MG/5 ML SYR IV STA (16:11)
[2022-12-11] MEDS ORDERED: PROCHLORPERAZINE 1 ML IV ONE (16:19)
--- NOTE | 2022-12-11 16:59 | History & Physical Report ---
Date of Service December 11, 2022 Assessment & Plan (1) Nausea & vomiting: (2) Diarrhea: (3) Acute left-sided low back pain: Plan: - Admit to med tele - Supportive care with fluids, antiemetics, pain medication --patient notes that morphine sulfate works for him currently, does not want Dilaudid as this has previously caused worsening nausea status post his heart transplant - Can trial heat pad for low back pain as well - Procal elevated at 0.71, CXR is negative - WBC elevated at 16 K with left shift, afebrile - NSS at 125ml/hr and allow clear liquid diet - Stool culture and c diff studies pending, respiratory panel is negative (4) Heart transplant status: Plan: - S/p transplant at [facility] in 2010 - Follow with their team regularly and last saw them within past 1 month, passed cardiac stress test without issues, follows with Dr. Jones. Pt has routine appointments Q6 months. -Maintained on cellcept and prograf --however due to his acute GI like symptoms has not been able to tolerate his medications today - Discussion was held with the ER and transplant team - they do not recommend empiric antibiotic therapy at this time, only wishes that he is able to tolerate his immunosuppressant medication (5) Hypertension: Plan: -Patient was unable to take any of his morning medications secondary to nausea/vomiting - continue fluids, can reassess ability to tolerate po meds in am - BP slightly elevated at 164/98 but will hold on additional meds as he is having pain currently, likely will improve with morphine and zofran (6) HLD (hyperlipidemia): Plan: - noted, resume statin therapy once can tolerate (7) DM II (diabetes mellitus, type II), controlled: Plan: -Continue insulin sliding scale -- hold evening glargine due to poor po status today -A1c with a.m. labs DVT PPx - teds, scds CODE: Full code Dispo: From home, likely to remain in the hospital x 1-2 days A total of 78 minutes were spent with greater than 50% of that time face to face with the patient, personally reviewing all current laboratories, imaging studies, past medication reconciliation, outpatient chart review, and discussion with specialists to collaborate care for the patient with attending. Please see attending documentation for corrections and/or additions. History of Present Illness Primary Care Provider: Mk Mann MD This is a 62 yo M with PMHx transplanted heart in 2010, Pt reports having acute onset GI illness, nausea, vomiting, and diarrhea and low back pain. He reports his was sick last week with nausea and vomiting, and his granddaughter who is 8 months old and daughter who lives with him was more also sick. He developed symptoms overnight around 3 AM which prompted him to come to the ER. He did not tolerate diet at all this morning or afternoon although Zofran did improve his symptoms, he was unable to advance his diet in the ER. He has not been able to tolerate many fluids in the ER, thinks that karen debora actually upset his stomach. He reports having chronically loose stools intermittently due to some the medications he is on for his heart transplant. He also reports having abdominal pain, and left-sided lower back pain which he rates as a 7/10. He is feels very sore after retching so many times earlier today. Denies any hematemesis. He took Maalox at bedside during my interview. Discussion was held with the transplant team at [facility]. They do not want empiric antibiotics at this time as long as he is able to tolerate his immunosuppressants. They are aware that his WBC is 16.57 with a left shift. Afebrile. CT of the abdomen pelvis was negative for any acute findings, no kidney stones. Allergies Allergy/AdvReac Type Severity Reaction Status Date / Time colchicine AdvReac Unknown unknown Verified 03/07/19 11:30 Bpajwbp-SGE-DfH Reductase AdvReac Unknown joint pain Verified 03/07/19 11:30 Inhibitor [Vjfxzqy-Gct-Kif Reductase Inhibitor] Home Medications Medication Instructions Recorded Confirmed Type acetaminophen 325 mg tablet 325 mg PO DIRECTED PRN Pain 12/11/22 12/11/22 History (Tylenol) albuterol sulfate 90 mcg/actuation 2 puff inhalation QID 12/11/22 12/11/22 History aerosol inhaler amlodipine 5 mg tablet 5 mg PO DAILY 12/11/22 12/11/22 History ascorbic acid (vitamin C) 1,000 mg 1 g PO DAILY 12/11/22 12/11/22 History tablet (Vitamin C) aspirin 81 mg tablet,delayed 81 mg PO Q2D 12/11/22 12/11/22 History release calcium carbonate 500 mg-vitamin 1 tab PO BID 12/11/22 12/11/22 History D3 10 mcg (400 unit) tablet (Calcium 500 + D) diphenhydramine HCl 25 mg capsule 25 mg PO Q6H PRN Itching 12/11/22 12/11/22 History (Benadryl) dulaglutide 3 mg/0.5 mL 3 mg subcut WK 12/11/22 12/11/22 History subcutaneous pen injector (Trulicity) ezetimibe 10 mg tablet 10 mg PO DAILY 12/11/22 12/11/22 History famotidine 20 mg tablet (Pepcid) 20 mg PO BID 12/11/22 12/11/22 History fluorouracil 5 % topical cream 1 applic topical DIRECTED PRN 12/11/22 12/11/22 History (Efudex) NEEDED gabapentin 300 mg capsule 300 mg PO TID 12/11/22 12/11/22 History ibuprofen 200 mg tablet 200 mg PO Q4H PRN Pain 12/11/22 12/11/22 History insulin glargine 100 unit/mL (3 10 unit subcut DAILY 12/11/22 12/11/22 History mL) subcutaneous pen (Basaglar KwikPen U-100 Insulin) losartan 100 mg tablet 100 mg PO DAILY 12/11/22 12/11/22 History magnesium oxide 400 mg PO DAILY 12/11/22 12/11/22 History metformin 500 mg tablet,extended 1,000 mg PO BIDM 12/11/22 12/11/22 History release 24 hr multivitamin 1 tab PO DAILY 12/11/22 12/11/22 History mycophenolate mofetil 500 mg 500 mg PO BID 12/11/22 12/11/22 History tablet (CellCept) omega 9-fpx-dri-fish oil 1,000 mg 1 cap PO TID 12/11/22 12/11/22 History (120 mg-180 mg) capsule (Fish Oil) ondansetron HCl 4 mg tablet 4 mg PO Q6H PRN Nausea 12/11/22 12/11/22 History tacrolimus 1 mg capsule, See Rx Instructions .Route .COMPLEX 12/11/22 12/11/22 History immediate-release Past Med/Surg History Medical History (Updated 12/11/22 @ 16:46 by Mirna Richardson PA-C) History of abdominal hernia Surgical History (Updated 12/11/22 @ 16:46 by Mirna Richardson PA-C) Hx of heart transplant 03/27/2011 at [facility] Hx of vasectomy Family History (Updated 12/11/22 @ 16:47 by Mirna Richardson PA-C) Other Diabetes Heart disease Social History (Updated 12/11/22 @ 16:47 by Mirna Richardson PA-C) Smoking Status: Former smoker Tobacco Type: Cigarettes Preferred Language: Bahamian Feels Safe at Home: Yes Review of Systems Review of Systems: Constitutional: No fever, sweats or chills, generalized malaise and ill feeling Eyes: No diplopia, no worsening or blurred vision ENT: normal hearing, no trouble swallowing Respiratory: No cough, sputum, dyspnea at rest or on exertion Cardiovascular: No chest pain, tightness or palpitations Abdomen: As per HPI Musculoskeletal: No joint pain, calf pain, swelling Back: Left lower back pain, history of cervical neck pain Neurologic: No weakness, numbness/tingling, or balance problems Psychiatric: No anxiety or depression Skin: No rash or itch Physical Exam Physical Exam: General: awake, alert, + generalized illness, no acute distress Head: Normocephalic, atraumatic ENT: PERRL, EOMI, no pharyngeal exudate, mucous membranes moist Chest: Clear to auscultation, on room air, no adventitious breath sounds Cardiac: Regular rate and rhythm, no murmur, no JVD, normal peripheral pulses, good capillary refill Abdominal: NABS x 4 quadrants, soft, nondistended, nontender to palpation, no rebound or guarding Back: no CVA tenderness Extremities: Normal inspection, no peripheral edema or erythema, calfs nontender to palpation Psych: Normal mood and affect Neuro: AAO x 3, strength intact bilaterally and rated 5/5, no motor deficits, speech is clear, no peripheral sensory deficits Results & Data Results & Data Vital Signs (Past 12 Hours) Vital Signs Temp Pulse Pulse Resp BP BP Pulse Ox 12/11/22 13:01 96 12/11/22 13:01 164/98 H 12/11/22 12:30 94 H 18 96 12/11/22 12:30 134/91 12/11/22 12:00 95 H 16 96 12/11/22 12:00 159/91 H 12/11/22 11:41 99 H 8 L 97 12/11/22 11:00 102 H 14 98 12/11/22 11:00 177/103 H 12/11/22 10:30 110 H 28 H 98 12/11/22 10:30 121/80 12/11/22 10:19 107 H 16 100 12/11/22 10:19 139/94 12/11/22 10:18 104 H 18 99 12/11/22 10:33 108 H 22 121/80 100 12/11/22 10:26 108 H 12/11/22 10:21 36.7 C 109 H 19 139/94 98 O2 Del Method 12/11/22 13:01 12/11/22 13:01 12/11/22 12:30 12/11/22 12:30 12/11/22 12:00 12/11/22 12:00 12/11/22 11:41 12/11/22 11:00 12/11/22 11:00 12/11/22 10:30 12/11/22 10:30 12/11/22 10:19 12/11/22 10:19 12/11/22 10:18 12/11/22 10:33 Room Air 12/11/22 10:26 12/11/22 10:21 Room Air Laboratory Results 12/11/22 12:17 Aerobic Blood Culture - Pending Blood Anaerobic Blood Culture - Pending 12/11/22 12:17 Aerobic Blood Culture - Pending Blood Anaerobic Blood Culture - Pending 12/11/22 12/11/22 12/11/22 13:13 12:17 11:17 WBC RBC Hgb Hct MCV MCH MCHC RDW Std Deviation RDW Coeff of Rajinder Plt Count MPV Immature Gran % (Auto) Neut % (Auto) Lymph % (Auto) [place] % (Auto) Eos % (Auto) Baso % (Auto) Neut # (Auto) Lymph # (Auto) [place] # (Auto) Eos # (Auto) Baso # (Auto) Immature Gran # (Auto) Sodium Potassium Chloride Carbon Dioxide Anion Gap BUN Creatinine Est Cr Clr Drug Dosing Est GFR ( Amer) Est GFR (Non-Af Amer) BUN/Creatinine Ratio Glucose Lactate 1.4 Calcium Total Bilirubin AST ALT Alkaline Phosphatase Total Protein Albumin Globulin Albumin/Globulin Ratio Lipase Procalcitonin Urine Color Yellow Urine Appearance Clear Urine pH 8.5 H Ur Specific Crawford 1.019 Urine Protein Trace H Urine Glucose (UA) Trace H Urine Ketones 3+ H Urine Blood Negative Urine Nitrite Negative Urine Bilirubin Negative Urine Urobilinogen Negative Ur Leukocyte Esterase Negative Urine WBC (Auto) 0 Urine RBC (Auto) 0-4 U Hyaline Cast (Auto) 1-5 U Epithel Cells (Auto) 0-5 Urine Bacteria (Auto) Negative Adenovirus (PCR) Not Detected B. pertussis DNA (PCR) Not Detected B.parapertussis DNA PCR Not Detected C. pneumoniae DNA (PCR) Not Detected Coronavirus OC43 (PCR) Not Detected Coronavirus HKU1 (PCR) Not Detected Coronavirus 229E (PCR) Not Detected SARS-CoV-2 (PCR) Not Detected Coronavirus NL63 (PCR) Not Detected Human Metapneumovir PCR Not Detected Influenza Type A (PCR) Not Detected Influenza Type B (PCR) Not Detected M. pneumoniae (PCR) Not Detected Parainfluenza 1 (PCR) Not Detected Parainfluenza 2 (PCR) Not Detected Parainfluenza 3 (PCR) Not Detected Parainfluenza 4 (PCR) Not Detected RSV (PCR) Not Detected Entero/Rhino (PCR) Not Detected 12/11/22 12/11/22 12/11/22 10:21 10:21 10:21 WBC 16.57 H RBC 5.52 Hgb 16.0 Hct 46.5 MCV 84.2 MCH 29.0 MCHC 34.4 RDW Std Deviation 38.5 RDW Coeff of Rajinder 12.6 Plt Count 214 MPV 9.3 L Immature Gran % (Auto) 0.5 Neut % (Auto) 90.3 Lymph % (Auto) 3.6 Clar[place] % (Auto) 5.3 Eos % (Auto) 0.1 Baso % (Auto) 0.2 Neut # (Auto) 14.96 H Lymph # (Auto) 0.60 L Clar[place] # (Auto) 0.87 H Eos # (Auto) 0.02 Baso # (Auto) 0.04 Immature Gran # (Auto) 0.08 Sodium 139 Potassium 4.3 Chloride 100 Carbon Dioxide 24 Anion Gap 15 H BUN 29 H Creatinine 1.28 Est Cr Clr Drug Dosing 57.9 Est GFR ( Amer) 69.1 Est GFR (Non-Af Amer) 59.6 BUN/Creatinine Ratio 22.7 H Glucose 243 H Lactate Calcium 10.0 Total Bilirubin 1.1 H AST 23 ALT 24 Alkaline Phosphatase 65 Total Protein 8.5 H Albumin 5.0 Globulin 3.5 Albumin/Globulin Ratio 1.4 Lipase 62 Procalcitonin 0.71 H Urine Color Urine Appearance Urine pH Ur Specific Crawford Urine Protein Urine Glucose (UA) Urine Ketones Urine Blood Urine Nitrite Urine Bilirubin Urine Urobilinogen Ur Leukocyte Esterase Urine WBC (Auto) Urine RBC (Auto) U Hyaline Cast (Auto) U Epithel Cells (Auto) Urine Bacteria (Auto) Adenovirus (PCR) B. pertussis DNA (PCR) B.parapertussis DNA PCR C. pneumoniae DNA (PCR) Coronavirus OC43 (PCR) Coronavirus HKU1 (PCR) Coronavirus 229E (PCR) SARS-CoV-2 (PCR) Coronavirus NL63 (PCR) Human Metapneumovir PCR Influenza Type A (PCR) Influenza Type B (PCR) M. pneumoniae (PCR) Parainfluenza 1 (PCR) Parainfluenza 2 (PCR) Parainfluenza 3 (PCR) Parainfluenza 4 (PCR) RSV (PCR) Entero/Rhino (PCR) Diagnostic Findings Abdomen/Pelvis CT 12/11/22 10:23 CT OF THE ABDOMEN AND PELVIS WITHOUT CONTRAST CLINICAL HISTORY: Left low back/flank pain. COMPARISON STUDY: No previous studies for comparison. TECHNIQUE: Axial images of the abdomen and pelvis were obtained without IV contrast. Images were reviewed in the axial, sagittal, and coronal planes. Automated exposure control was utilized for the study. A dose lowering technique was utilized adhering to the principles of ALARA. FINDINGS: Lung bases are unremarkable. No pneumatosis, free air or portal venous gas is present. No renal, ureteral or bladder calculi are present. An 8 mm lesion within the left kidney on axial image 189 of 476 is suboptimally assessed on this unenhanced exam. A 3.5 cm water attenuation density within the right renal sinus represents a parapelvic cyst. There may be mild mild dilatation of the upper pole calyces of the right kidney. There are gallstones within the gallbladder. No evidence for acute cholecystitis. Evaluation of the abdomen and pelvis is suboptimal on this unenhanced exam. Liver, spleen, adrenal glands and pancreas are unremarkable. The colon is mildly fluid-filled. There is apparent wall thickening of the proximal transverse colon, shown best on axial image 199 of 476. This is likely due to underdistention. Colonic diverticulosis is present. No evidence for acute diverticulitis. No lymphadenopathy. No fluid collection. There is mild symmetric bilateral perinephric and periureteral adrenal stranding. Appendix is normal. IMPRESSION: 1. No urinary calculi. 2. Mild collecting system dilatation versus parapelvic cysts within the upper pole of the right kidney. 3. Fluid-filled colon. This may reflect a diarrheal state. Apparent wall thickening of the proximal transverse colon. This is likely due to underdistention. However, if not recently performed, a colonoscopy is recommended to exclude the less likely possibility of an underlying lesion. 4. Cholelithiasis. No evidence for acute cholecystitis. ACT 112: Positive. There are findings on this exam that require communication between the performing entity and the patient following Patient Test Result Information Act ([place] Act 112) guidelines. Electronically signed by: Abiodun Dennis M.D. 12/11/2022 12:11 PM Chest X-Ray 12/11/22 10:39 SINGLE VIEW CHEST CLINICAL HISTORY: Dyspnea FINDINGS: An AP, portable, upright chest radiograph is compared to study dated 08/28/2017. Correlation is made with chest CT dated 04/07/2010. The patient is status post midline sternotomy. The heart is enlarged. The pulmonary vasculature is noncongested. Chronic interstitial thickening is similar to previous. Scarring/atelectasis is noted at both lung bases. No airspace consolidation or large pleural effusion is identified. No pneumothorax is seen. The skeletal structures appear osteopenic. The bony thorax is grossly intact. Arthritic change is seen in the shoulders. IMPRESSION: Cardiomegaly with no acute cardiopulmonary abnormality. ACT 112: Negative or not required by law. Electronically signed by: Destin Limon M.D. 12/11/2022 11:11 AM ECG Additional Comments: Vent. 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 He reports his family members getting sick with similar diarrheal illness recently. He is not able to put down anything and has not been able to take his immunosuppressants in the morning. After coming to the hospital, he reports his diarrhea has been getting better and he has not had any further vomiting. Emergency physician reached out to [facility], they are aware of his current status and okay with him staying in this hospital. They would like him to be able to take his immunosuppressant and hence want him to be hospitalized for symptomatic management to aid with immunosuppression intake. Labs reviewed, WBC elevated with Pro-Raul elevation, will monitor off of antibiotic for now. Patient denies any febrile Episodes recently. We will get stool PCR. Respiratory PCR negative. Admitting CTAP and CXR reviewed. Continue with IV fluid, encourage Pedialyte solution at bedside, communication order left. Zofran and Compazine for nausea. Clear liquid diet, advance as tolerated. Labs in AM. On examination: GENERAL: Alert and oriented x3. NAD, on 3L NC O2. HEENT: No pallor, no icterus. Pupils equal, round and reactive to light. Oral mucosa moist. NECK: No JVD, no neck masses. Old healed midsternotomy scar. HEART: S1 and S2 heard. Regular rate and rhythm. No murmur, no gallop. RESPIRATORY SYSTEM: Normal AP diameter. No accessory muscle use. No wheezing, no crackles. ABDOMEN: Soft, bowel sounds present, nontender, no distention. CENTRAL NERVOUS SYSTEM: No facial droop. Speech is clear. Obeys simple commands. Moves extremities. EXTREMITIES: No edema, no erythema seen. I have seen and examined the patient and have discussed the case with the provider above. I agree with the assessment and plan as stated.
[2022-12-11 18:43] LABS: Adenovirus F 40/41 PCR Not Detected (NotDetected); Astrovirus PCR Not Detected (NotDetected); Campylobacter PCR Not Detected (NotDetected); Cryptosporidium PCR Not Detected (NotDetected); Cyclospora cayetanensis PCR Not Detected (NotDetected); Entamoeba histolytica PCR Not Detected (NotDetected); Enteroaggregative E.coli(EAEC) Not Detected (NotDetected); Enteropathogenic E.coli (EPEC) Not Detected (NotDetected); Enterotoxigenic E.coli (ETEC) Not Detected (NotDetected); Giardia lamblia PCR Not Detected (NotDetected); Plesiomonas shigelloides PCR Not Detected (NotDetected); Rotavirus A PCR Not Detected (NotDetected); Salmonella PCR Not Detected (NotDetected); Sapovirus PCR Not Detected (NotDetected); Shiga-like Toxin E.coli (STEC) Not Detected (NotDetected); Shigella/Enteroinvasive E.coli Not Detected (NotDetected); Vibrio cholerae PCR Not Detected (NotDetected); Vibrio species PCR Not Detected (NotDetected); Yersinia enterocolitica PCR Not Detected (NotDetected)
[2022-12-11] MEDS ORDERED: ACETAMINOPHEN 325 MG TAB PO PRN (19:06)
[2022-12-11] MEDS ORDERED: diphenhydrAMINE Capsule 25 MG CAP PO PRN (19:06)
[2022-12-11] MEDS ORDERED: CARBOHYDRATES FOR HYPOGLYCEMIA PO PRN (19:06)
[2022-12-11] MEDS ORDERED: PROCHLORPERAZINE 5 MG in SYRINGE 4 ML IV PRN (19:06)
[2022-12-11] MEDS ORDERED: DEXTROSE 50% 50 ML SYRINGE IV PRN (19:06)
[2022-12-11] MEDS ORDERED: GLUCOSE 10 TAB/TUBE PO PRN (19:06)
[2022-12-11] MEDS ORDERED: MoRPHine SULFATE 2 MG/ML CARP IV PRN (19:06)
[2022-12-11] MEDS ORDERED: GLUCOSE 40% GEL 15 GM TUBE PO PRN (19:06)
[2022-12-11] MEDS ORDERED: GLUCAGON FOR INJ 1 MG VIAL SQ PRN (19:06)
[2022-12-11] MEDS ORDERED: MoRPHine SULFATE 4 MG/ML 1 ML CARP\\VIAL IV PRN (19:06)
[2022-12-11 19:29] LABS: Norovirus GI/GII PCR DETECTED (NotDetected)
[2022-12-11] MEDS: ASPIRIN 81 MG ECTAB PO SCH (19:56)
[2022-12-11] MEDS ORDERED: SODIUM CHLORIDE 0.9% 1000ML 1,000 ML IV SCH (20:00)
[2022-12-11] MEDS: INSULIN ASPART PER UNIT CHARGE SC SCH (20:39)
[2022-12-11] MEDS: ALBUTEROL HFA 8 GM INHALER INH SCH (20:42)
[2022-12-11] MEDS: TACROLIMUS 1 MG CAP PO SCH (20:43)
[2022-12-11] MEDS: GABAPENTIN 300 MG CAP PO SCH (20:44)
[2022-12-11] MEDS: MYCOPHENOLATE MOFETIL 250 MG CAP PO SCH (20:44)
[2022-12-11] MEDS: TACROLIMUS 0.5 MG CAP PO SCH (20:44)
[2022-12-12] MEDS: SODIUM CHLORIDE 0.9% 1000ML 1,000 ML IV SCH ×3 (01:55→20:46)
[2022-12-12] MEDS: ONDANSETRON INJ 2 MG/ML 2 ML VIAL IV PRN ×2 (04:07→22:32)
[2022-12-12] MEDS: MYCOPHENOLATE MOFETIL 250 MG CAP PO SCH ×2 (08:24→20:49)
[2022-12-12] MEDS: INSULIN ASPART PER UNIT CHARGE SC SCH ×4 (08:24→20:49)
[2022-12-12] MEDS: GABAPENTIN 300 MG CAP PO SCH ×3 (08:25→20:49)
[2022-12-12] MEDS: amLODIPine BESYLATE 5 MG TAB PO SCH (08:25)
[2022-12-12] MEDS: ASPIRIN 81 MG ECTAB PO SCH (08:25)
[2022-12-12 08:30] LABS: Basophils # (auto) 0.03 K/uL (0-0.2); Basophils % (auto) 0.4 %; Eosinophils # (auto) 0.04 K/uL (0-0.50); Eosinophils % (auto) 0.5 %; Hematocrit (blood only) 38.8 % (42.0-52.0); Hemoglobin 12.9 g/dl (14.0-18.0); Immature Granulocytes # (auto) 0.04 K/uL (0.01-0.20); Immature Granulocytes % (auto) 0.5 %; Lymphocytes # (auto) 0.88 K/uL (1.2-3.4); Lymphocytes % (auto) 10.5 %; Mean Corpuscular Hemoglobin 28.9 pg (25.0-34.0); Mean Corpuscular Hgb Conc 33.2 g/dL (32.0-36.0); Mean Corpuscular Volume 86.8 fL (80.0-100.0); Mean Platelet Volume 8.9 fL (9.4-12.4); Monocytes % (auto) 7.1 %; Neutrophils # (auto) 6.83 K/uL (1.40-6.50); Platelet Count 147 K/uL (130-400); RDW Coefficient of Variation 13.1 % (11.5-14.5); RDW Standard Deviation 40.9 fL (36.4-46.3); Red Blood Count 4.47 M/uL (4.70-6.10); White Blood Count 8.42 K/ul (4.8-10.8)
[2022-12-12] MEDS: ALBUTEROL HFA 8 GM INHALER INH SCH (08:41)
[2022-12-12 08:42] LABS: Estimated Average Glucose 148 mg/dl; Hemoglobin A1C 6.8 % (4.5-5.6)
[2022-12-12] MEDS ORDERED: ALBUTEROL HFA 8 GM INHALER INH PRN (08:48)
[2022-12-12 09:00] LABS: BUN Creatinine Ratio 21.4 (10-20); Calcium 8.1 mg/dl (8.6-10.3); Creatinine Clr Calc Pharmacy 75.6 ml/min; Est GFR (African American) 95.4 ml/min; Est GFR (Non-African American) 82.3 ml/min; Magnesium 1.6 mg/dl (1.7-2.4); Phosphorus 2.4 mg/dl (2.5-4.9); Potassium 3.8 mmol/L (3.5-5.1)
[2022-12-12] MEDS ORDERED: POTASSIUM PHOS 3 MMOL/1 ML INFUSION IV ONE (09:02)
[2022-12-12] MEDS ORDERED: POTASSIUM PHOSPHATE 15 MMOL in SODIUM CHLORIDE 0.9% 250 ML IV ONE (09:15)
--- NOTE | 2022-12-12 09:29 | Electrocardiogram Report ---
Test Reason : Blood Pressure : / mmHG Vent. 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 rate has decreased BY 103 BPM Otherwise no significant change Confirmed by Nimesh Benitez ([id number]) on 12/12/2022 9:28:50 AM Referred By: REFERRED SELF Confirmed By:Nimesh Benitez
[2022-12-12] MEDS: MAGNESIUM SULFATE / D5W 1 GM/100 ML BAG IV SCH ×2 (10:23→12:11)
--- NOTE | 2022-12-12 11:24 | Ultrasound Report ---
RENAL ULTRASOUND CLINICAL HISTORY: Right kidney cyst. COMPARISON STUDY: CT of the abdomen and pelvis December 11, 2022. TECHNIQUE: Sonography of the kidneys and the urinary bladder was performed. FINDINGS: The right kidney measures 10.1 x 5.8 x 6.2 cm and the left kidney measures 10.3 x 6.2 x 5.5 cm. A 2.6 cm cyst within the right renal sinus represents a parapelvic cyst and corresponds to the c yst shown on CT of December 11, 2022. Additional anechoic foci within the right renal sinus could reflect additional parapelvic cysts or mild dilatation of the upper pole calyces. There is no left hydroneph rosis. No solid renal lesion is identified by sonography. A few subcentimeter left renal cysts are pr esent. Both ureteral jets were identified. IMPRESSION: 1. 2.6 cm right parapelvic cyst. No solid renal lesion by sonography. Additional anechoic foci within the right renal sinus could reflect additional parapelvic cysts or mild dilatation of the upper pole calyces. 2. No left hydronephrosis. ACT 112: Negative or not required by law. Electronically signed by: Abiodun Dennis M.D. 12/12/2022 11:22 AM
--- NOTE | 2022-12-12 17:08 | Hospitalist Progress Note ---
Date of Service December 12, 2022 Assessment & Plan (1) Nausea & vomiting: (2) Diarrhea: (3) Acute left-sided low back pain: Plan: Norovirus infection --CT ABD:No urinary calculi. Mild collecting system dilatation versus parapelvic cysts within the upper pole of the right kidney. Fluid-filled colon. This may reflect a diarrheal state. Apparent wall thickening of the proximal transverse colon. This is likely due to underdistention. However, if not recently performed, a colonoscopy is recommended to exclude the less likely possibility of an underlying lesion. Cholelithiasis. No evidence for acute cholecystitis. -- Stool studies positive for norovirus Continue IV fluids Conservative management Isolation precautions Advance diet as tolerated Renal cyst -Renal USD:2.6 cm right parapelvic cyst. No solid renal lesion by sonography. Additional anechoic foci within the right renal sinus could reflect additional parapelvic cysts or mild dilatation of the upper pole calyces.. No left hydronephrosis. Follow-up as outpatient Hypophosphatemia Hypomagnesemia Replete electrolytes as needed Leukocytosis Likely reactive, dehydration WBC count normalized Follow-up blood culture (4) Heart transplant status: Plan: - S/p transplant at [facility] in 2010 - Follow with their team regularly and last saw them within past 1 month, passed cardiac stress test without issues, follows with Dr. Jones. Pt has routine appointments Q6 months. -Maintained on cellcept and prograf --Continue -Discussion was held with the ER and transplant team - they do not recommend empiric antibiotic therapy at this time, only wishes that he is able to tolerate his immunosuppressant medication Follow up as outpatient (5) Hypertension: Plan: Continue amlodipine Monitor (6) HLD (hyperlipidemia): Plan: on Zetia (7) DM II (diabetes mellitus, type II), controlled: Plan: HbA1c: 6.8 Hold PO meds Continue insulin sliding scale Monitor BGs DVT Px Teds, scds CODE STATUS: Full code Admission and Anticipated Discharge Date Admission Date: December 11, 2022 Subjective Patient is seen and examined at bedside Nausea, vomiting resolved Still has diarrhea Denies any chest pain, dyspnea, abdominal pain, dizziness Tolerating diet No other complaints Review of Systems Review of Systems: All systems reviewed & are unremarkable except as noted in Subjective Physical Exam Physical Exam: Physical Exam: Vitals signs as noted above General Appearance:Moderately built and nourished, no apparent distress Head: normocephalic, Atraumatic Eyes: normal inspection, EOMI Neck: supple, Trachea midline Respiratory/Chest: Normal breath sounds, CTA, No accessory muscle use Cardiovascular: S1, S2, No murmur Abdomen/GI:Soft, Non tender, Bowel sounds present Extremities/Musculoskeletal:normal inspection, no edema Neurologic/Psych:AAOX3, grossly no focal neurological deficits Skin: normal color, warm Results & Data Results & Data Vital Signs (Past 12 Hours) Vital Signs Temp Pulse Pulse Resp BP Pulse Ox O2 Del Method 12/12/22 16:07 37.0 C 82 16 144/84 H 96 Room Air 12/12/22 15:17 85 12/12/22 12:05 36.9 C 84 16 133/81 95 Room Air 12/12/22 11:04 91 H 12/12/22 08:41 16 95 Room Air 12/12/22 08:04 36.8 C 86 16 130/77 95 Room Air Laboratory Results Short CBC 12/12/22 Range/Units 07:53 WBC 8.42 (4.8-10.8) K/ul Hgb 12.9 L D (14.0-18.0) g/dl Hct 38.8 L (42.0-52.0) % Plt Count 147 (130-400) K/uL BMP 12/12/22 07:53 Sodium 136 Potassium 3.8 Chloride 103 Carbon Dioxide 27 BUN 21 Creatinine 0.98 D Glucose 176 H Calcium 8.1 L
[2022-12-12] MEDS: FAMOTIDINE 20 MG TAB PO SCH (20:47)
[2022-12-12] MEDS: TACROLIMUS 0.5 MG CAP PO SCH (20:51)
[2022-12-13] MEDS: SODIUM CHLORIDE 0.9% 1000ML 1,000 ML IV SCH (03:08)
[2022-12-13 06:15] LABS: Hematocrit (blood only) 38.2 % (42.0-52.0); Hemoglobin 13.2 g/dl (14.0-18.0); Mean Corpuscular Hemoglobin 29.1 pg (25.0-34.0); Mean Corpuscular Hgb Conc 34.6 g/dL (32.0-36.0); Mean Corpuscular Volume 84.1 fL (80.0-100.0); Mean Platelet Volume 9.1 fL (9.4-12.4); Platelet Count 147 K/uL (130-400); RDW Coefficient of Variation 12.8 % (11.5-14.5); RDW Standard Deviation 39.1 fL (36.4-46.3); Red Blood Count 4.54 M/uL (4.70-6.10); White Blood Count 9.54 K/ul (4.8-10.8)
[2022-12-13 06:32] LABS: BUN Creatinine Ratio 14.1 (10-20); Calcium 8.1 mg/dl (8.6-10.3); Creatinine Clr Calc Pharmacy 74.8 ml/min; Est GFR (African American) 94.2 ml/min; Est GFR (Non-African American) 81.3 ml/min; Magnesium 1.7 mg/dl (1.7-2.4); Phosphorus 2.4 mg/dl (2.5-4.9); Potassium 3.9 mmol/L (3.5-5.1)
[2022-12-13] MEDS: TACROLIMUS 1 MG CAP PO SCH (08:20)
[2022-12-13] MEDS: MYCOPHENOLATE MOFETIL 250 MG CAP PO SCH (08:21)
[2022-12-13] MEDS: GABAPENTIN 300 MG CAP PO SCH ×2 (08:21→13:16)
[2022-12-13] MEDS: amLODIPine BESYLATE 5 MG TAB PO SCH (08:21)
[2022-12-13] MEDS: FAMOTIDINE 20 MG TAB PO SCH (08:22)
[2022-12-13] MEDS: INSULIN ASPART PER UNIT CHARGE SC SCH ×2 (08:22→13:16)
[2022-12-13] MEDS ORDERED: EZETIMIBE 10 MG TABLET PO SCH (09:00)
[2022-12-13] MEDS ORDERED: LOSARTAN POTASSIUM 50 MG TAB PO SCH (09:00)
[2022-12-13] MEDS ORDERED: POT PHOSPHATE MONOBASIC W/ SOD TAB PO SCH (13:00)
--- NOTE | 2022-12-13 13:42 | Hospitalist Progress Note ---
Date of Service December 13, 2022 Assessment & Plan (1) Nausea & vomiting: (2) Diarrhea: (3) Acute left-sided low back pain: Plan: Norovirus infection --CT ABD:No urinary calculi. Mild collecting system dilatation versus parapelvic cysts within the upper pole of the right kidney. Fluid-filled colon. This may reflect a diarrheal state. Apparent wall thickening of the proximal transverse colon. This is likely due to underdistention. However, if not recently performed, a colonoscopy is recommended to exclude the less likely possibility of an underlying lesion. Cholelithiasis. No evidence for acute cholecystitis. -- Stool studies positive for norovirus Discotninue IV fluids Conservative management Isolation precautions Tolerated diet Diarrhea improved Renal cyst -Renal USD:2.6 cm right parapelvic cyst. No solid renal lesion by sonography. Additional anechoic foci within the right renal sinus could reflect additional parapelvic cysts or mild dilatation of the upper pole calyces.. No left hydronephrosis. Follow-up as outpatient Hypophosphatemia Hypomagnesemia Replete electrolytes as needed Leukocytosis Likely reactive, dehydration WBC count normalized Blood Cultures negative to date (4) Heart transplant status: Plan: - S/p transplant at [facility] in 2010 - Follow with their team regularly and last saw them within past 1 month, passed cardiac stress test without issues, follows with Dr. Jones. Pt has routine appointments Q6 months. -Maintained on cellcept and prograf --Continue -Discussion was held with the ER and transplant team - they do not recommend empiric antibiotic therapy at this time, only wishes that he is able to tolerate his immunosuppressant medication Follow up as outpatient (5) Hypertension: Plan: Continue amlodipine Monitor (6) HLD (hyperlipidemia): Plan: on Zetia (7) DM II (diabetes mellitus, type II), controlled: Plan: HbA1c: 6.8 Hold PO meds Continue insulin sliding scale Monitor BGs DVT Px Teds, scds CODE STATUS: Full code Admission and Anticipated Discharge Date Admission Date: December 11, 2022 Subjective Patient is seen and examined at bedside States feeling well today Nausea, vomiting, diarrhea resolved No new complaints Eager to get discharged Denies any chest pain, dyspnea, abdominal pain, dizziness Review of Systems Review of Systems: All systems reviewed & are unremarkable except as noted in Subjective Physical Exam Physical Exam: Physical Exam: Vitals signs as noted above General Appearance:Moderately built and nourished, no apparent distress Head: normocephalic, Atraumatic Eyes: normal inspection, EOMI Neck: supple, Trachea midline Respiratory/Chest: Normal breath sounds, CTA, No accessory muscle use Cardiovascular: S1, S2, No murmur Abdomen/GI:Soft, Non tender, Bowel sounds present Extremities/Musculoskeletal:normal inspection, no edema Neurologic/Psych:AAOX3, grossly no focal neurological deficits Skin: normal color, warm Results & Data Results & Data Vital Signs (Past 12 Hours) Vital Signs Temp Pulse Pulse Resp BP Pulse Ox O2 Del Method 12/13/22 12:12 83 12/13/22 09:30 Room Air 12/13/22 08:04 37.0 C 87 16 133/77 97 Room Air 12/13/22 04:00 36.7 C 83 18 130/80 94 Room Air Laboratory Results Short CBC 12/13/22 Range/Units 05:50 WBC 9.54 (4.8-10.8) K/ul Hgb 13.2 L (14.0-18.0) g/dl Hct 38.2 L (42.0-52.0) % Plt Count 147 (130-400) K/uL BMP 12/13/22 05:50 Sodium 137 Potassium 3.9 Chloride 103 Carbon Dioxide 29 BUN 14 Creatinine 0.99 Glucose 129 H Calcium 8.1 L
--- NOTE | 2022-12-13 13:54 | Discharge Summary ---
Date of Service December 13, 2022 Admission HPI Per Admitting Provider This is a 62 yo M with PMHx transplanted heart in 2010, Pt reports having acute onset GI illness, nausea, vomiting, and diarrhea and low back pain. He reports his was sick last week with nausea and vomiting, and his granddaughter who is 8 months old and daughter who lives with him was more also sick. He developed symptoms overnight around 3 AM which prompted him to come to the ER. He did not tolerate diet at all this morning or afternoon although Zofran did improve his symptoms, he was unable to advance his diet in the ER. He has not been able to tolerate many fluids in the ER, thinks that karen debora actually upset his stomach. He reports having chronically loose stools intermittently due to some the medications he is on for his heart transplant. He also reports having abdominal pain, and left-sided lower back pain which he rates as a 7/10. He is feels very sore after retching so many times earlier today. Denies any hematemesis. He took Maalox at bedside during my interview. Discussion was held with the transplant team at [facility]. They do not want empiric antibiotics at this time as long as he is able to tolerate his immunosuppressants. They are aware that his WBC is 16.57 with a left shift. Afebrile. CT of the abdomen pelvis was negative for any acute findings, no kidney stones. Admission Exam Per Admitting Provider General: awake, alert, + generalized illness, no acute distress Head: Normocephalic, atraumatic ENT: PERRL, EOMI, no pharyngeal exudate, mucous membranes moist Chest: Clear to auscultation, on room air, no adventitious breath sounds Cardiac: Regular rate and rhythm, no murmur, no JVD, normal peripheral pulses, good capillary refill Abdominal: NABS x 4 quadrants, soft, nondistended, nontender to palpation, no rebound or guarding Back: no CVA tenderness Extremities: Normal inspection, no peripheral edema or erythema, calfs nontender to palpation Psych: Normal mood and affect Neuro: AAO x 3, strength intact bilaterally and rated 5/5, no motor deficits, speech is clear, no peripheral sensory deficits Principal Diagnosis Norovirus infection Right Renal cyst Hypophosphatemia Hypomagnesemia Discharge Data Allergies Allergy/AdvReac Type Severity Reaction Status Date / Time colchicine AdvReac Unknown unknown Verified 03/07/19 11:30 Iuunuks-IBH-VuC Reductase AdvReac Unknown joint pain Verified 03/07/19 11:30 Inhibitor [Celvmpo-Gpn-Xig Reductase Inhibitor] Consultations 12/11/22 16:53 ED Decision to Admit Stat Procedures Performed Laboratory Results WBC 9.54 K/ul (4.8-10.8) 12/13/22 05:50 RBC 4.54 M/uL (4.70-6.10) L 12/13/22 05:50 Hgb 13.2 g/dl (14.0-18.0) L 12/13/22 05:50 Hct 38.2 % (42.0-52.0) L 12/13/22 05:50 MCV 84.1 fL (80.0-100.0) 12/13/22 05:50 MCH 29.1 pg (25.0-34.0) 12/13/22 05:50 MCHC 34.6 g/dL (32.0-36.0) 12/13/22 05:50 RDW Std Deviation 39.1 fL (36.4-46.3) 12/13/22 05:50 RDW Coeff of Rajinder 12.8 % (11.5-14.5) 12/13/22 05:50 Plt Count 147 K/uL (130-400) 12/13/22 05:50 MPV 9.1 fL (9.4-12.4) L 12/13/22 05:50 Immature Gran % (Auto) 0.5 % 12/12/22 07:53 Neut % (Auto) 81.0 % 12/12/22 07:53 Lymph % (Auto) 10.5 % 12/12/22 07:53 Gregg % (Auto) 7.1 % 12/12/22 07:53 Eos % (Auto) 0.5 % 12/12/22 07:53 Baso % (Auto) 0.4 % 12/12/22 07:53 Neut # (Auto) 6.83 K/uL (1.40-6.50) H 12/12/22 07:53 Lymph # (Auto) 0.88 K/uL (1.2-3.4) L 12/12/22 07:53 Gregg # (Auto) 0.60 K/uL (0.11-0.59) H 12/12/22 07:53 Eos # (Auto) 0.04 K/uL (0-0.50) 12/12/22 07:53 Baso # (Auto) 0.03 K/uL (0-0.2) 12/12/22 07:53 Immature Gran # (Auto) 0.04 K/uL (0.01-0.20) 12/12/22 07:53 Sodium 137 mmol/L (136-145) 12/13/22 05:50 Potassium 3.9 mmol/L (3.5-5.1) 12/13/22 05:50 Chloride 103 mmol/L (98-107) 12/13/22 05:50 Carbon Dioxide 29 mmol/L (21-32) 12/13/22 05:50 Anion Gap 5 (3-11) 12/13/22 05:50 BUN 14 mg/dl (6-23) 12/13/22 05:50 Creatinine 0.99 mg/dl (0.6-1.4) 12/13/22 05:50 Est Cr Clr Drug Dosing 74.8 ml/min 12/13/22 05:50 Est GFR ( Amer) 94.2 ml/min 12/13/22 05:50 Est GFR (Non-Af Amer) 81.3 ml/min 12/13/22 05:50 BUN/Creatinine Ratio 14.1 (10-20) 12/13/22 05:50 Glucose 129 mg/dl (70-99(Fasting)) H 12/13/22 05:50 POC Glucose 169 mg/dl (70-99) H 12/13/22 11:41 Estimat Average Glucose 148 mg/dl 12/12/22 07:53 Hemoglobin A1c 6.8 % (4.5-5.6) H 12/12/22 07:53 Lactate 1.4 mmol/L (0.4-2.0) 12/11/22 12:17 Calcium 8.1 mg/dl (8.6-10.3) L 12/13/22 05:50 Phosphorus 2.4 mg/dl (2.5-4.9) L 12/13/22 05:50 Magnesium 1.7 mg/dl (1.7-2.4) 12/13/22 05:50 Total Bilirubin 1.1 mg/dl (0.2-1.0) H 12/11/22 10:21 AST 23 U/L (13-39) 12/11/22 10:21 ALT 24 U/L (7-52) 12/11/22 10:21 Alkaline Phosphatase 65 U/L (34-104) 12/11/22 10:21 Total Protein 8.5 gm/dl (6.0-8.3) H 12/11/22 10:21 Albumin 5.0 gm/dl (3.4-5.0) 12/11/22 10:21 Globulin 3.5 gm/dl (2.5-4.0) 12/11/22 10:21 Albumin/Globulin Ratio 1.4 (0.9-2) 12/11/22 10:21 Lipase 62 U/L (11-82) 12/11/22 10:21 Procalcitonin 0.71 ng/ml (0-0.5) H 12/11/22 10:21 Urine Color Yellow 12/11/22 13:13 Urine Appearance Clear (Clear) 12/11/22 13:13 Urine pH 8.5 (4.5-7.5) H 12/11/22 13:13 Ur Specific [place] 1.019 (1.000-1.030) 12/11/22 13:13 Urine Protein Trace (Negative) H 12/11/22 13:13 Urine Glucose (UA) Trace (Negative) H 12/11/22 13:13 Urine Ketones 3+ (Negative) H 12/11/22 13:13 Urine Blood Negative (Negative) 12/11/22 13:13 Urine Nitrite Negative (Negative) 12/11/22 13:13 Urine Bilirubin Negative (Negative) 12/11/22 13:13 Urine Urobilinogen Negative (Negative) 12/11/22 13:13 Ur Leukocyte Esterase Negative (Negative) 12/11/22 13:13 Urine WBC (Auto) 0 /hpf (0-5) 12/11/22 13:13 Urine RBC (Auto) 0-4 /hpf (0-4) 12/11/22 13:13 U Hyaline Cast (Auto) 1-5 /lpf (0-5) 12/11/22 13:13 U Epithel Cells (Auto) 0-5 /lpf (0-5) 12/11/22 13:13 Urine Bacteria (Auto) Negative (Negative) 12/11/22 13:13 Stl C. cayetanensis PCR Not Detected (NotDetected) 12/11/22 Unknown Stool Rotavirus A PCR Not Detected (NotDetected) 12/11/22 Unknown Stl Adenov F 40/41 PCR Not Detected (NotDetected) 12/11/22 Unknown Stool Astrovirus (PCR) Not Detected (NotDetected) 12/11/22 Unknown Stool Campylobacter PCR Not Detected (NotDetected) 12/11/22 Unknown Stool Cryptosporidium PCR Not Detected (NotDetected) 12/11/22 Unknown Stl E.coli Shiga Tox PCR Not Detected (NotDetected) 12/11/22 Unknown Stl Enterotoxigenic E PCR Not Detected (NotDetected) 12/11/22 Unknown Stool EPEC (PCR) Not Detected (NotDetected) 12/11/22 Unknown Stool EAEC (PCR) Not Detected (NotDetected) 12/11/22 Unknown Stl E. histolytica PCR Not Detected (NotDetected) 12/11/22 Unknown Stool Giardia Lamblia PCR Not Detected (NotDetected) 12/11/22 Unknown Stool Salmonella PCR Not Detected (NotDetected) 12/11/22 Unknown Stool Sapovirus (PCR) Not Detected (NotDetected) 12/11/22 Unknown Stl P. shigelloides PCR Not Detected (NotDetected) 12/11/22 Unknown Stl Shigella/EIEC PCR Not Detected (NotDetected) 12/11/[address]enterocolitica PCR Not Detected (NotDetected) 12/11/22 Unknown Stool Vibrio (PCR) Not Detected (NotDetected) 12/11/22 Unknown Stl Vibrio cholerae PCR Not Detected (NotDetected) 12/11/22 Unknown Stl Norovirus GI/GII PCR DETECTED (NotDetected) A* 12/11/22 Unknown Adenovirus (PCR) Not Detected (NotDetected) 12/11/22 11:17 B. pertussis DNA (PCR) Not Detected (NotDetected) 12/11/22 11:17 B.parapertussis DNA PCR Not Detected (NotDetected) 12/11/22 11:17 C. pneumoniae DNA (PCR) Not Detected (NotDetected) 12/11/22 11:17 Coronavirus OC43 (PCR) Not Detected (NotDetected) 12/11/22 11:17 Coronavirus HKU1 (PCR) Not Detected (NotDetected) 12/11/22 11:17 Coronavirus 229E (PCR) Not Detected (NotDetected) 12/11/22 11:17 SARS-CoV-2 (PCR) Not Detected (NotDetected) 12/11/22 11:17 Coronavirus NL63 (PCR) Not Detected (NotDetected) 12/11/22 11:17 Human Metapneumovir PCR Not Detected (NotDetected) 12/11/22 11:17 Influenza Type A (PCR) Not Detected (NotDetected) 12/11/22 11:17 Influenza Type B (PCR) Not Detected (NotDetected) 12/11/22 11:17 M. pneumoniae (PCR) Not Detected (NotDetected) 12/11/22 11:17 Parainfluenza 1 (PCR) Not Detected (NotDetected) 12/11/22 11:17 Parainfluenza 2 (PCR) Not Detected (NotDetected) 12/11/22 11:17 Parainfluenza 3 (PCR) Not Detected (NotDetected) 12/11/22 11:17 Parainfluenza 4 (PCR) Not Detected (NotDetected) 12/11/22 11:17 RSV (PCR) Not Detected (NotDetected) 12/11/22 11:17 Entero/Rhino (PCR) Not Detected (NotDetected) 12/11/22 11:17 Impressions Abdomen/Pelvis CT 12/11/22 10:23 CT OF THE ABDOMEN AND PELVIS WITHOUT CONTRAST CLINICAL HISTORY: Left low back/flank pain. COMPARISON STUDY: No previous studies for comparison. TECHNIQUE: Axial images of the abdomen and pelvis were obtained without IV contrast. Images were reviewed in the axial, sagittal, and coronal planes. Automated exposure control was utilized for the study. A dose lowering technique was utilized adhering to the principles of ALARA. FINDINGS: Lung bases are unremarkable. No pneumatosis, free air or portal venous gas is present. No renal, ureteral or bladder calculi are present. An 8 mm lesion within the left kidney on axial image 189 of 476 is suboptimally assessed on this unenhanced exam. A 3.5 cm water attenuation density within the right renal sinus represents a parapelvic cyst. There may be mild mild dilatation of the upper pole calyces of the right kidney. There are gallstones within the gallbladder. No evidence for acute cholecystitis. Evaluation of the abdomen and pelvis is suboptimal on this unenhanced exam. Liver, spleen, adrenal glands and pancreas are unremarkable. The colon is mildly fluid-filled. There is apparent wall thickening of the proximal transverse colon, shown best on axial image 199 of 476. This is likely due to underdistention. Colonic diverticulosis is present. No evidence for acute diverticulitis. No lymphadenopathy. No fluid collection. There is mild symmetric bilateral perinephric and periureteral adrenal stranding. Appendix is normal. IMPRESSION: 1. No urinary calculi. 2. Mild collecting system dilatation versus parapelvic cysts within the upper pole of the right kidney. 3. Fluid-filled colon. This may reflect a diarrheal state. Apparent wall thicke jose c of the proximal transverse colon. This is likely due to underdistention. However, if not recently performed, a colonoscopy is recommended to exclude the less likely possibility of an underlying lesion. 4. Cholelithiasis. No evidence for acute cholecystitis. ACT 112: Positive. There are findings on this exam that require communication between the performing entity and the patient following Patient Test Result Information Act ([place] Act 112) guidelines. Electronically signed by: Abiodun Dennis M.D. 12/11/2022 12:11 PM Chest X-Ray 12/11/22 10:39 SINGLE VIEW CHEST CLINICAL HISTORY: Dyspnea FINDINGS: An AP, portable, upright chest radiograph is compared to study dated 08/28/2017. Correlation is made with chest CT dated 04/07/2010. The patient is status post midline sternotomy. The heart is enlarged. The pulmonary vasculature is noncongested. Chronic interstitial thickening is similar to previous. Scarring/atelectasis is noted at both lung bases. No airspace consolidation or large pleural effusion is identified. No pneumothorax is seen. The skeletal structures appear osteopenic. The bony thorax is grossly intact. Arthritic change is seen in the shoulders. IMPRESSION: Cardiomegaly with no acute cardiopulmonary abnormality. ACT 112: Negative or not required by law. Electronically signed by: Destin Limon M.D. 12/11/2022 11:11 AM Renal Ultrasound 12/12/22 08:55 RENAL ULTRASOUND CLINICAL HISTORY: Right kidney cyst. COMPARISON STUDY: CT of the abdomen and pelvis December 11, 2022. TECHNIQUE: Sonography of the kidneys and the urinary bladder was performed. FINDINGS: The right kidney measures 10.1 x 5.8 x 6.2 cm and the left kidney measures 10.3 x 6.2 x 5.5 cm. A 2.6 cm cyst within the right renal sinus represents a parapelvic cyst and corresponds to the cyst shown on CT of December 11, 2022. Additional anechoic foci within the right renal sinus could reflect additional parapelvic cysts or mild dilatation of the upper pole calyces. There is no left hydronephrosis. No solid renal lesion is identified by sonography. A few subcentimeter left renal cysts are present. Both ureteral jets were identified. IMPRESSION: 1. 2.6 cm right parapelvic cyst. No solid renal lesion by sonography. Additional anechoic foci within the right renal sinus could reflect additional parapelvic cysts or mild dilatation of the upper pole calyces. 2. No left hydronephrosis. ACT 112: Negative or not required by law. Electronically signed by: Abiodun Dennis M.D. 12/12/2022 11:22 AM Ordered Studies 12/11/22 10:23 CT abd pelvis wo con Stat 12/12/22 08:55 US Renal Bladder [US renal/blad retro comp] Routine Hospital Course (1) Nausea & vomiting: (2) Diarrhea: (3) Acute left-sided low back pain: Norovirus infection --CT ABD:No urinary calculi. Mild collecting system dilatation versus parapelvic cysts within the upper pole of the right kidney. Fluid-filled colon. This may reflect a diarrheal state. Apparent wall thickening of the proximal transverse colon. This is likely due to underdistention. However, if not recently performed, a colonoscopy is recommended to exclude the less likely possibility of an underlying lesion. Cholelithiasis. No evidence for acute cholecystitis. -- Stool studies positive for norovirus Discotninue IV fluids Conservative management Isolation precautions Tolerated diet Diarrhea improved Renal cyst -Renal USD:2.6 cm right parapelvic cyst. No solid renal lesion by sonography. Additional anechoic foci within the right renal sinus could reflect additional parapelvic cysts or mild dilatation of the upper pole calyces.. No left hydronephrosis. Follow-up as outpatient Hypophosphatemia Hypomagnesemia Replete electrolytes as needed Leukocytosis Likely reactive, dehydration WBC count normalized Blood Cultures negative to date (4) Heart transplant status: - S/p transplant at [facility] in 2010 - Follow with their team regularly and last saw them within past 1 month, passed cardiac stress test without issues, follows with Dr. Jones. Pt has routine appointments Q6 months. -Maintained on cellcept and prograf --Continue -Discussion was held with the ER and transplant team - they do not recommend empiric antibiotic therapy at this time, only wishes that he is able to tolerate his immunosuppressant medication Follow up as outpatient (5) Hypertension: Continue amlodipine Monitor (6) HLD (hyperlipidemia): on Zetia (7) DM II (diabetes mellitus, type II), controlled: HbA1c: 6.8 Hold PO meds Continue insulin sliding scale Monitor BGs DVT Px Teds, scds CODE STATUS: Full code Total Time Total Time Spent Total Time Spent (In Minutes): 55 minutes Discharge Plan Discharge Items Patient Disposition: Home - Self-Care Reason For Visit: GI ILLNESS, HEART TRANSPLANT Discharge Diagnosis: Norovirus infection Right Renal cyst Hypophosphatemia Hypomagnesemia Activity: Per Instructions section Exercise/Sports: Gradually increase as tolerated Non-emergency contact: Primary Care Provider Call non-emergency contact if: you have any medication questions, your symptoms worsen and your pain is concerning for you Follow-up/Referrals: Mk Mann MD [Primary Care Provider] - (Date & Time 12/18/2022 10:20 AM Provider Mk Mann III, MD Department [facility] ) Diet: Carb Consistent or DM2 and Heart Healthy Addtl Attending Provider Instructions: Follow-up with your primary care physician on 12/18/2022 10:20 AM Follow-up with your urologist for further evaluation of right renal cyst as advised. --Final blood culture results are pending at the time of discharge. Follow-up with your physician for results. Seek immediate medical attention if your symptoms reoccur or worsen Please take all medications as instructed on discharge list below. Please call if you have any questions or problems. You can reach a [facility] hospitalist on duty at [facility] 24 hours a day by calling [phone] Pending Studies at Discharge: Yes (Blood Cultures ) Stand-Alone Forms: My [facility] Health, Smoking Cessation Medications and DC Order Prescriptions: New Phospha 250 Neutral 250 mg Tablet 1 tab PO QID Qty: 12 0RF Continued multivitamin Tablet 1 tab PO DAILY ascorbic acid (vitamin C) [Vitamin C] 1,000 mg Tablet 1 g PO DAILY acetaminophen [Tylenol] 325 mg Tablet 325 mg PO DIRECTED PRN (Reason: Pain) ondansetron HCl [Zofran] 4 mg Tablet 4 mg PO Q6H PRN (Reason: Nausea) fluorouracil [Efudex] 5 % Cream 1 applic TOPICAL DIRECTED PRN (Reason: NEEDED) Rx Instructions: APPLY TO SCALP amlodipine 5 mg tablet 5 mg PO DAILY aspirin 81 mg Tablet,Delayed Release (Dr/Ec) 81 mg PO Q2D Rx Instructions: Every other day mycophenolate mofetil [CellCept] 500 mg Tablet 500 mg PO BID famotidine [Pepcid] 20 mg Tablet 20 mg PO BID diphenhydramine HCl [Benadryl] 25 mg Capsule 25 mg PO Q6H PRN (Reason: Itching) ibuprofen 200 mg Tablet 200 mg PO Q4H PRN (Reason: Pain) gabapentin 300 mg Capsule 300 mg PO TID albuterol sulfate 90 mcg/actuation Hfa Aerosol Inhaler 2 puff INHALATION QID losartan 100 mg tablet 100 mg PO DAILY metformin 500 mg Tablet Extended Release 24 Hr 1,000 mg PO BIDM tacrolimus 1 mg capsule See Rx Instructions .ROUTE .COMPLEX Rx Instructions: TAKES 3 MG QAM, THEN 2 MG QPM. ezetimibe 10 mg tablet 10 mg PO DAILY calcium carbonate-vitamin D3 [Calcium 500 + D] 500 mg-10 mcg (400 unit) Tablet 1 tab PO BID insulin glargine [Basaglar KwikPen U-100 Insulin] 100 unit/mL (3 mL) Insulin Pen 10 unit SUBCUT DAILY MDD 12 UNITS Rx Instructions: DOSE 10 UNITS + 2 UNITS TO PRIME omega 3-dma-oyc-fish oil [Fish Oil] 1,000 mg (120 mg-180 mg) Capsule 1 cap PO TID magnesium oxide 400 mg magnesium Tablet 400 mg PO DAILY Trulicity 3 mg/0.5 mL Pen Injector 3 mg SUBCUT WK Rx Instructions: Sundays Discharge Orders: Discharge Order (Routine); Ordered 12/13/22 Ordered By: Jt Acuna/Other Patient Handouts: Managing Type 2 Diabetes Admission Data Admit Date/Time: 12/11/22 17:03 Attending Provider: Jt Wadsworth Admit Provider: Steve Munoz Primary Care Provider: Mk Mann Other Providers: Steve Munoz
[2022-12-13] MEDS ORDERED: TACROLIMUS 1 MG CAP PO SCH (21:00)
== END 2022-12-13 15:02 | disposition home or self-care (01) ==
LOC: ED 10:12 → INTOOBSV 17:03 → EDINP 17:03 → SUATTDRO 17:03 → EDINP 19:12 → 2N 22:44